=== PATIENT | female | born 1950 | race Caucasian/White ===

== ENCOUNTER 2022-12-22 00:53 | Emergency (ER) | payer OTHER, SELFPAY ==
[2022-12-22 01:03] VITALS: BP 154/79; PULSE 59; RESP 16; TEMP 36.8; O2SAT 99; BMI 25.5
--- NOTE | 2022-12-22 01:10 | ED_ITS ---
HPI - General Adult General Chief complaint: Allergic Reaction Stated complaint: HIVES Time Seen by Provider: 12/22/22 01:09 Source: patient Mode of arrival: walk-in Limitations: no limitations History of Present Illness HPI narrative: past history of recurrent hives. States they resolve with prednisone. 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 Now arrives with swelling about her left eye . Describes burning pain. Is now developing a cough. Not short of breath. No associated nausea or fever Onset (ago): day(s) Related Data Allergies Allergy/AdvReac Type Severity Reaction Status Date / Time tramadol AdvReac Intermediate Dizziness Verified 12/22/22 01:07 Review of Systems ROS Status of ROS 10 or more systems reviewed and unremarkable except as noted in history and below Exam Constitutional Vital Signs - 24 hr 12/22/22 01:03 12/22/22 01:14 12/22/22 02:45 Temperature 98.3 F Pulse Rate [Monitor Right] 59 L 65 Respiratory Rate 16 16 16 Blood Pressure [Right Arm] 154/79 H 118/69 Pulse Oximetry 99 97 Oxygen Delivery Method Room Air Room Air HENMT Common normals: normocephalic and head/scalp atraumatic Eye Common normals: PERRL, EOMs intact bilaterally and conjunctivae normal Periorbital: periorbital findings abnormal (swelling about left eye) Neck & C-Spine Common normals: full ROM and no lymphadenopathy Chest Common normals: inspection of chest normal and palpation of chest normal Respiratory Common normals: normal respiratory effort, no retractions, no use of accessory muscles and clear to auscultation bilaterally Cardio Common normals: no JVD, regular rate, regular rhythm, S1 normal heart sound and S2 normal heart sound GI Common normals: Normal to inspection, nondistended, normoactive bowel sounds present and soft to palpation Back & Pelvis Common normals: no CVA tenderness and thoracic and lumbar spine normal to inspection Extremity Common normals: normal to inspection and no joint enlargement Neuro Common normals: oriented x3 and CN's II-XII intact bilaterally Psych Appearance: grossly normal Course Vital Signs Vital signs: Vital Signs Temperature 98.3 F 12/22/22 01:03 Pulse Rate 59 L 12/22/22 01:03 Respiratory Rate 16 12/22/22 01:03 Blood Pressure 154/79 H 12/22/22 01:03 Pulse Oximetry 99 12/22/22 01:03 Oxygen Delivery Method Room Air 12/22/22 01:03 Temperature 98.3 F 12/22/22 01:03 Pulse Rate 65 12/22/22 02:45 Respiratory Rate 16 12/22/22 02:45 Blood Pressure 118/69 12/22/22 02:45 Pulse Oximetry 97 12/22/22 02:45 Oxygen Delivery Method Room Air 12/22/22 02:45 Medical Decision Making MDM Narrative Medical decision making narrative: patient presents with an allergic reaction with mild cough and swelling about her left eye. similar reactions in the past that have responded to prednisone. Treated with solumedrol in the department and her swelling has decreased and co ugh resolved. Discharged home with a dose of prednisone for the AM. she already has a prescription of prednisone called in by her doctor Lab Data Labs: Lab Results 12/22/22 Range/Units 01:05 WBC 9.5 (4.0-11.0) 10^3/uL RBC 4.34 (4.20-5.40) 10^6/uL Hgb 13.6 (12.0-16.0) g/dL Hct 40.6 (36.0-48.0) % MCV 93.5 (81.0-99.0) fL MCH 31.3 (26.7-34.0) pg MCHC 33.5 (29.9-35.2) g/dL RDW 12.8 (11.0-15.0) % Plt Count 248 (150-450) 10^3/uL MPV 9.4 L (9.5-13.5) fL Neut % (Auto) 65.3 (43.0-75.0) % Lymph % (Auto) 25.3 (20.5-60.0) % Chase % (Auto) 6.0 (1.7-12.0) % Eos % (Auto) 3.0 (0.9-7.0) % Baso % (Auto) 0.2 (0.2-2.0) % Neut # (Auto) 6.2 (1.4-6.5) 10^3/uL Lymph # (Auto) 2.4 (1.2-3.8) 10^3/uL Chase # (Auto) 0.6 (0.3-0.8) 10^3/uL Eos # (Auto) 0.3 (0.0-0.7) 10^3/uL Baso # (Auto) 0.0 (0.0-0.1) 10^3/uL Sodium 138 (136-145) mmol/L Potassium 3.0 L (3.5-5.1) mmol/L Chloride 105 (98-107) mmol/L Carbon Dioxide 24.8 (21.0-32.0) mmol/L Anion Gap 11.2 BUN 23.0 H (7.0-18.0) mg/dL Creatinine 0.97 (0.55-1.02) mg/dL Est GFR ( Amer) >60 (>=60) Est GFR (Non-Af Amer) 57 L (>=60) BUN/Creatinine Ratio 23.7 Glucose 137 H (74-106) mg/dL Calcium 9.2 (8.5-10.1) mg/dL C-Reactive Protein <1.0 (<=1.0) mg/dL Discharge Plan Discharge Chief Complaint: Allergic Reaction Clinical Impression: Allergic reaction Instructions: Allergies (ED) Stand Alone Forms: Portal Instructions Referrals: DWAYNE HAN [Primary Care Provider] - 1 week Follow Up Appointments: follow up with your doctor next week
[2022-12-22 01:14] VITALS: RESP 16
[2022-12-22 01:18] LABS: Basophils Percent Auto 0.2 % (0.2-2.0); Eosinophils Absolute Auto 0.3 10^3/uL (0.0-0.7); Hematocrit 40.6 % (36.0-48.0); Hemoglobin 13.6 g/dL (12.0-16.0); Immature Granulocytes Abs Auto 0.02 10^3/uL (0.00-0.03); Immature Granulocytes Pct Auto 0.2 % (0.0-0.5); Lymphocytes Absolute Auto 2.4 10^3/uL (1.2-3.8); Lymphocytes Percent Auto 25.3 % (20.5-60.0); Mean Corpuscular HGB Conc 33.5 g/dL (29.9-35.2); Mean Corpuscular Hemoglobin 31.3 pg (26.7-34.0); Mean Corpuscular Volume 93.5 fL (81.0-99.0); Mean Platelet Volume 9.4 fL (9.5-13.5); Monocytes Absolute Auto 0.6 10^3/uL (0.3-0.8); Neutrophils Absolute Auto 6.2 10^3/uL (1.4-6.5); Neutrophils Percent Auto 65.3 % (43.0-75.0); Platelet Count 248 10^3/uL (150-450); Red Blood Count 4.34 10^6/uL (4.20-5.40); Red Cell Distribution Width 12.8 % (11.0-15.0); White Blood Count 9.5 10^3/uL (4.0-11.0)
[2022-12-22 01:27] LABS: Anion Gap 11.2; BUN Creatinine Ratio 23.7; Calcium 9.2 mg/dL (8.5-10.1); Carbon Dioxide 24.8 mmol/L (21.0-32.0); Chloride 105 mmol/L (98-107); Estimated GFR (African America >60 (>=60); Estimated GFR (Non-African Ame 57 (>=60); Glucose 137 mg/dL (74-106); Sodium 138 mmol/L (136-145)
[2022-12-22] MEDS: METHYLPREDNISOLONE SOD SUCC PF 125 MG/2 ML VIAL IM (01:27)
[2022-12-22 01:39] LABS: C Reactive Protein <1.0 mg/dL (<=1.0)
[2022-12-22 02:45] VITALS: BP 118/69; PULSE 65; RESP 16; O2SAT 97
[2022-12-22 02:51] VITALS: BP 146/71; PULSE 62; RESP 16; O2SAT 98
== END 2022-12-22 03:09 | disposition home or self-care (01) ==
PROVIDERS: Emergency Provider Internal Medicine; PCP Internal Medicine
DX: T78.40XA Allergy, unspecified, initial encounter (principal)
CPT/HCPCS: 36415; 80048; 85025; 86140; 96372; 99284; J2930

== ENCOUNTER 2023-07-10 12:36 | Outpatient (OUT) | payer OTHER, SELFPAY ==
--- NOTE | 2023-07-10 | CONS_ITS ---
CONSULTATION DATE: 07/10/2023 TO: Awais Chawla M.D. CHIEF COMPLAINT: Includes severe right flank pain. HISTORY OF PRESENT ILLNESS: Review of systems, past medical/surgical history were obtained and documented on the health questionnaire and is available upon request. She is a 73-year-old female, reports having had pain in the above mentioned area starting one week ago that occurred spontaneously and increased gradually to its present state. She reports the pain is primarily again in her right flank area, right what she describes as pelvic area, exacerbated primarily with activities such as standing, walking and performing transitioning maneuvers. She feels most comfortable in the semi-recumbent position. She has denied any change in bowel and bladder habits or new sensorimotor change in the lower extremities. CURRENT MEDICATION: Includes prednisone which she takes for chronic hives, 20 mg daily. EXAM: Notable for patient having kyphoscoliosis. She has a non-focal sensorimotor exam of the lower extremities. DTRs symmetrical. She had no signs consistent with radiculopathy or myelopathy involving the lower extremities. Patient did have a moderate amount of pain with lumbar facet joint loading maneuvers occurring on the right side. She had a moderate amount of pain when performing right sided FABERs sign, pelvic rock, test and Gaenslen?s maneuver. She did have point tenderness along the iliac crest, as well as along the inferior portion of the actual oblique muscle, and she had quite a bit of tenderness and spasm of the right quadratus lumborum muscle. 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 RECOMMENDATIONS: I recommend she consider physical therapy with modalities. I have placed her on baclofen 10 mg pills, half a pill to one pill b.i.d. as tolerated, and topical nonsteroidal agents. Will see the patient back in the office in 6-8 weeks? time or sooner if needed. As part of providing excellent, safe, comprehensive care, the following was completed at our patient's visit: 1. A medication reconciliation and review to ensure accurate knowledge of current/active medications, including asking our patients to inform us about any gahr-oty-[id number] medications or herbal remedies/nutritional supplements/alternative remedies. 2. A review to specifically ensure our patients have had annual screening for: elevated body mass index (BMI, see intake chart for exact total), tobacco use, screening for depression, and screening for unhealthy alcohol use. When screening is concerning, patients are provided with education and the specific recommendation to discuss the concerning health issue and treatment options with their primary care provider. SALOME
== END 2023-07-10 12:37 | disposition home or self-care (01) ==
PROVIDERS: PCP Internal Medicine; Visit Provider Anesthesiology Pain Medicine
DX: M54.50 Low back pain, unspecified (principal); M41.9 Scoliosis, unspecified; M47.816 Spondylosis without myelopathy or radiculopathy, lumbar region
CPT/HCPCS: G0463

== ENCOUNTER 2023-08-26 12:47 | Outpatient (OUT) | payer OTHER, SELFPAY ==
--- NOTE | 2023-08-26 | CONS_ITS ---
PROCEDURE DATE: 08/26/2023 TO: Dr. Chawla PROCEDURE: Ilioinguinal nerve injection in the office. PREOPERATIVE DIAGNOSIS: Right ilioinguinal nerve neuritis, right tensor fascia amadou spasm and dysfunction. POSTOPERATIVE DIAGNOSIS: Right ilioinguinal nerve neuritis, right tensor fascia amadou spasm and dysfunction. SOLUTION USED FOR INJECTION: 2 mL of 2% lidocaine, 2 mL of 0.25% Marcaine and 10 mg of Kenalog, total of 5 mL, and 1 mL used for the injection at the site. IMMEDIATE COMPLICATIONS: None. PROCEDURE: After informed consent was obtained from the patient, placed in the supine position. The skin overlying the area was prepped with alcohol. A 25 gauge, 1 ?? needle was inserted over the area of the right ilioinguinal nerve. Needle tip was advanced until there was mild paresthesia, at which point we re- directed the needle tip and the paresthesia completed resolved. We injected 1 mL of solution. Post procedure, needle was removed. Patient reports a dramatic reduction in pain symptoms. I have also asked her to trial Zonegran 50 mg pills, 1-2 at h.s. as tolerated. MTDD
--- OUTSIDE RECORDS SUMMARY | 2023-08-26 12:54 | XMS_ITS | CCD ---
Author Name Unknown Address [address] [place] [id number] Organization [facility] Care Team Providers Care Ticket Sales Supervisor Name Role Phone EMELY, DR RICE Consulting Unavailable EMELY, DR RICE Attending Unavailable EMELY, DR RICE Admitting Unavailable EMELY, DR RICE Primary Care Unavailable ZACKARY, DR LISA Stephen Consulting Unavailable NORMA, DR EUNICE Jamison Consulting Unavailable EMELY, DR RICE Consulting Unavailable EMELY, DR RICE Attending Unavailable EMELY, DR RICE Admitting Unavailable EMELY, DR RICE Primary Care Unavailable ZACKARY, DR LISA Stephen Consulting Unavailable AVRIL GUERRA Attending Unavailable AVRIL GUERRA Referring Unavailable Problems Problem Classification Problem Date Documented Da te Episodic/Chronic Menopausal disorders (1 source) Other primary ovarian failure; Translations: [OTHER PRIMARY OVARIAN FAILURE] Onset: 08-22-2022 Chronic Nonmalignant breast conditions (1 source) Unspecified lump in the right breast, lower inner quadrant; Translations: [UNS LUMP IN RT BRST LW INR QUADRANT] Onset: 08-22-2022 Episodic Osteoporosis (1 source) Age-related osteoporosis without current pathological fracture; Translations: [AGE-REL OSTEOPOR W/O CURR PATH FX] Onset: 08-22-2022 Chronic Other screening for suspected conditions (not mental disorders or infectious disease) (8 sources) Other abnormal and inconclusive findings on diagnostic imaging of breast; Translations: [Encounter for screening mammogram for malignant neoplasm of breast] Onset: 08-20-2022 Episodic Results Test Name Value Interpretation Reference Range Facil ity MG MAMM RT DIAG FUon 023 MG MAMM RT DIAG FU Patient: MAGDALENA CHATTERJEE V. Exam Date: 08/30/2022 : 1950 Gender:F Ordering : DR DWAYNE HAN M.D. Admission #: [id number] Family : Order #: [id number] CLICK HERE TO VIEW EXAM RADIOLOGY REPORT PROCEDURE: MAMMOGRAM RIGHT DIAGNOSTIC DIGITAL FOLLOW UP, 08/30/2022, 13:33 ULTRASOUND BREAST RIGHT LIMITED, 08/30/2022, 14:34 COMPARISON: MG MAMM SCREEN 3D KENIA CAD, 08/20/2022. INDICATIONS: Abnormal findings on diagnostic imaging of breast Calculator Name NCI Breast Cancer Risk Assessment Tool 5 Year Breast Cancer Risk 1.10% Lifetime Breast Cancer Risk 3.30% Personal Breast Cancer No Personal Ovarian Cancer No Treatments None Family Cancers None LOCATION: [facility] BREAST COMPOSITION: Scattered areas fibroglandular density. FINDINGS: DIAGNOSTIC CATEGORY 3--PROBABLY BENIGN FINDING. THE FOLLOWING FINDING(S) HAS A HIGH PROBABILITY OF A BENIGN ETIOLOGY: Circumscribed reniform shape 5.6 x 3.5 mm nodule identified in lower inner quadrant, mid breast. Ultrasound demonstrates 4 o'clock position and area hypo echogenicity peripheral hyper echogenicity possibly calcification. This measures 2.1 x 2.0 x 2.2 mm. The ultrasound abnormality is not congruent in size to mammographic finding. Given the relative any benign appearance modalities, six-month follow-up is recommended than biopsy of 2 separate lesions RECOMMENDATIONS: SHORT TERM FOLLOW-UP DIAGNOSTIC MAMMOGRAM RIGHT BREAST IN 6 MONTHS. SHORT TERM FOLLOW-UP ULTRASOUND RIGHT BREAST IN 6 MONTHS. ADDITIONAL MAMMOGRAPHIC VIEWS REQUIRED: RIGHT BREAST - diagnostic mammogram PLEASE NOTE: A NORMAL MAMMOGRAM DOES NOT EXCLUDE THE POSSIBILITY OF BREAST CANCER. A CLINICALLY SUSPICIOUS PALPABLE LUMP SHOULD BE BIOPSIED. Dictated by: Lisa Redding MD on 08/30/2022 at 14:45 Approved by: Lisa Redding MD on 08/30/2022 at 15:13 Normal [facility] US BREAST RIGHT LIMITEDon US BREAST RIGHT LIMITED Patient: MAGDALENA CHATTERJEE V. Exam Date: 08/30/2022 : 1950 Gender:F Ordering : DR DWAYNE HAN M.D. Admission #: [id number] Family : Order #: [id number] CLICK HERE TO VIEW EXAM RADIOLOGY REPORT PROCEDURE: MAMMOGRAM RIGHT DIAGNOSTIC DIGITAL FOLLOW UP, 08/30/2022, 13:33 ULTRASOUND BREAST RIGHT LIMITED, 08/30/2022, 14:34 COMPARISON: MG MAMM SCREEN 3D KENIA CAD, 08/20/2022. INDICATIONS: Abnormal findings on diagnostic imaging of breast Calculator Name NCI Breast Cancer Risk Assessment Tool 5 Year Breast Cancer Risk 1.10% Lifetime Breast Cancer Risk 3.30% Personal Breast Cancer No Personal Ovarian Cancer No Treatments None Family Cancers None LOCATION: [facility] BREAST COMPOSITION: Scattered areas fibroglandular density. FINDINGS: DIAGNOSTIC CATEGORY 3--PROBABLY BENIGN FINDING. THE FOLLOWING FINDING(S) HAS A HIGH PROBABILITY OF A BENIGN ETIOLOGY: Circumscribed reniform shape 5.6 x 3.5 mm nodule identified in lower inner quadrant, mid breast. Ultrasound demonstrates 4 o'clock position and area hypo echogenicity peripheral hyper echogenicity possibly calcification. This measures 2.1 x 2.0 x 2.2 mm. The ultrasound abnormality is not congruent in size to mammographic finding. Given the relative any benign appearance modalities, six-month follow-up is recommended than biopsy of 2 separate lesions RECOMMENDATIONS: SHORT TERM FOLLOW-UP DIAGNOSTIC MAMMOGRAM RIGHT BREAST IN 6 MONTHS. SHORT TERM FOLLOW-UP ULTRASOUND RIGHT BREAST IN 6 MONTHS. ADDITIONAL MAMMOGRAPHIC VIEWS REQUIRED: RIGHT BREAST - diagnostic mammogram PLEASE NOTE: A NORMAL MAMMOGRAM DOES NOT EXCLUDE THE POSSIBILITY OF BREAST CANCER. A CLINICALLY SUSPICIOUS PALPABLE LUMP SHOULD BE BIOPSIED. Dictated by: Lisa Redding MD on 08/30/2022 at 14:45 Approved by: Lisa Redding MD on 08/30/2022 at 15:13 Normal [facility] MAMM SCREEN 3D KENIA CADon 08-20-2022 MG MAMM SCREEN 3D KENIA CAD Patient: MAGDALENA CHATTERJEE V. Exam Date: 08/20/2022 : 1950 Gender:F Ordering : DR DWAYNE HAN M.D. Admission #: [id number] Family : Order #: [id number] CLICK HERE TO VIEW EXAM RADIOLOGY REPORT PROCEDURE: MAMMOGRAM SCREENING 3D BILATERAL CAD COMPARISON: MG MAMM SCREEN KENIA W CAD, 11/18/2017. MG MAMM SCREEN KENIA W CAD, 04/17/2020. MG MAMM LT DIAG FU, 05/02/2020. INDICATIONS: Screening mammography Calculator Name NCI Breast Cancer Risk Assessment Tool 5 Year Breast Cancer Risk 1.10% Lifetime Breast Cancer Risk 3.30% Personal Breast Cancer No Personal Ovarian Cancer No Treatments None Family Cancers None LOCATION: [facility] BREAST COMPOSITION: Scattered areas fibroglandular density. FINDINGS: DIAGNOSTIC CATEGORY 0--INCOMPLETE: NEED ADDITIONAL IMAGING EVALUATION. Scattered benign-appearing nodules are present. Scattered benign-appearing calcifications are present. Scattered benign-appearing lymph nodes are present. RIGHT BREAST: New 5.3 mm partially circumscribed nodule lower inner quadrant, anterior to mid breast. Spot compression and ultrasound is recommended. LEFT BREAST: No significant suspicious finding. RECOMMENDATIONS: ADDITIONAL MAMMOGRAPHIC VIEWS REQUIRED: RIGHT BREAST - spot compression ULTRASOUND: RIGHT BREAST PLEASE NOTE: A NORMAL MAMMOGRAM DOES NOT EXCLUDE THE POSSIBILITY OF BREAST CANCER. A CLINICALLY SUSPICIOUS PALPABLE LUMP SHOULD BE BIOPSIED. Dictated by: Lisa Redding MD on 08/21/2022 at 08:40 Approved by: Lisa Redding MD on 08/21/2022 at 08:49 Normal [facility] XR DEXA BONE DENSITYon 08-20 XR DEXA BONE DENSITY EXAMINATION: XR DEXA BONE DENSITY, 08/20/2022 2:45 PM EST HISTORY: Primary ovarian failure COMPARISON: DEXA bone densitometry 04/17/2020 TECHNIQUE: Dual-energy X-ray absorptiometry (DEXA) bone density study performed for the axial skeleton. FINDINGS: SPINE ANALYSIS: Average bone mineral density is 1.234 g/cm2. T-score (standard deviation relative to young adult mean): 0.5 . -1.9% change since prior study. HIP ANALYSIS: Lowest bone mineral density is within the left femoral neck, 0.670 g/cm2. T-score (standard deviation relative to young adult mean): -2.6 . +3.4% change since prior study. IMPRESSION: World David Organization Classification: Osteoporosis - High Fracture Risk Electronically authenticated by: EUNICE GREEN Date: 2022-08-20 15:28 Normal [facility] Encounters Encounter Date Encounter Type Care Provider Facility Start: 08-04-2023 End: 08-05-2023 ambulatory AVRIL GUERRA Not Available Start: 06-10-2023 End: 06-11-2023 ambulatory AVRIL GUERRA Not Available Start: 08-30-2022 End: 08-31-[address] DWAYNE HAN Facility:[facility] Start: 08-20-2022 End: 08-21-[address] DWAYNE HAN Facility:[facility] Payers Date Payer Category Payer Unknown [id number] 1950 Unknown [id number] 1950 Unknown [id number] 1950 Unknown [id number] 1950 Unknown [id number] 1950 Unknown [id number] Summary Purpose Family History No Family History Records FoundNo Family History Records Found Advance Directives No Advanced Directives Records FoundNo Advanced Directives Records Found Additional Source Comments INFORMATION SOURCE (unrecogn ized section and content) DATE CREATED AUTHOR 09/07/2022 [facility] DATE CREATED AUTHOR CANDI HONG 08/09/2023 [facility] FOR RECORDS PERTAINING TO PATIENTS WHO ARE OR HAVE BEEN ENROLLED IN A CHEMICAL DEPENDENCY/SUBSTANCEABUSE PROGRAM, SOME INFORMATION MAY BE OMITTED. This clinical summary was aggregated from multiple sources. Caution should be exercised in using it in the provision of clinical care. This summary normalizes information from multiple sources, and as a consequence, information in this document may materially change the coding, format and clinical context of patient data. In addition, data may be omitted in some cases. CLINICAL DECISIONS SHOULD BE BASED ON THE PRIMARY CLINICAL RECORDS. [facility]. provides no warranty or guarantee of the accuracy or completeness of information in this document.
== END 2023-08-26 12:48 | disposition home or self-care (01) ==
LOC: PM 12:47
PROVIDERS: PCP Internal Medicine; Visit Provider Anesthesiology Pain Medicine
DX: G57.91 Unspecified mononeuropathy of right lower limb (principal)
CPT/HCPCS: 64425; J0665; J3301

== ENCOUNTER 2023-10-14 08:41 | Outpatient (OUT) | payer OTHER, SELFPAY ==
--- NOTE | 2023-10-14 08:43 | MM_ITS ---
Patient Name: MAGDALENA CHATTERJEE MR#: [id number] : 1950 Exam Date: 10/14/2023 Ordering Doctor: DR TAVAI PEDERSON RADIOLOGY REPORT PROCEDURE: MM TOMOSYNTHESIS SCREENING BI COMPARISON: MG MAMM SCREEN 3D KENIA CAD, 08/20/2022. MG MAMM RT DIAG FU, 08/30/2022. INDICATIONS: Screening Calculator Name NCI Breast Cancer Risk Assessment Tool 5 Year Breast Cancer Risk 1.10% Lifetime Breast Cancer Risk 3.20% Personal Breast Cancer No Personal Ovarian Cancer No Treatments None Family Cancers None LOCATION: [facility] BREAST COMPOSITION: Scattered areas fibroglandular density. FINDINGS: DIAGNOSTIC CATEGORY 2--BENIGN FINDING. NO CHANGE FROM COMPARISON. Scattered benign-appearing nodules are present. Scattered benign-appearing calcifications are present. Scattered benign-appearing lymph nodes are present. RIGHT BREAST: No significant suspicious finding. LEFT BREAST: No significant suspicious finding. RECOMMENDATIONS: ROUTINE MAMMOGRAM AND CLINICAL EVALUATION IN 12 MONTHS. PLEASE NOTE: A NORMAL MAMMOGRAM DOES NOT EXCLUDE THE POSSIBILITY OF BREAST CANCER. A CLINICALLY SUSPICIOUS PALPABLE LUMP SHOULD BE BIOPSIED. Dictated by: Jose Redding MD on 10/14/2023 at 12:10 Approved by: Jose Redding MD on 10/14/2023 at 12:11
--- OUTSIDE RECORDS SUMMARY | 2023-10-14 08:44 | XMS_ITS | CCD ---
Author Organization [facility] Care Team Providers Care Accounts Receivable Manager Name Role Phone DR AWAIS CHAWLA Consulting Unavailable EMELY, DR RICE Attending Unavailable EMELY, DR RICE Admitting Unavailable EMELY, DR RICE Primary Care Unavailable ZACKARY, DR LISA Stephen Consulting Unavailable NORMA, DR EUNICE Jamison Consulting Unavailable EMELY, DR RICE Consulting Unavailable EMELY, DR RICE Attending Unavailable EMELY, DR RICE Admitting Unavailable EMELY, DR RICE Primary Care Unavailable ZACKARY, DR LISA Stephen Consulting Awais Churchill MD Unavailable Awais Chawla MD Primary Care Provider [phone] Attending Unavailable LAKSHMIPATHY, NARENDRANATH Referring Unava ilable KELI HADLEY Attending Unavailable KATHIMIRADHA, NARENDMAZIN Referring Unava ilable TAVIA PLATT Attending Unavailable AVRIL FOX Attending Unavailable AVRIL FOX Referring Unavailable Allergies Allergy Classification Reported Allergen(s) Allergy Type Date of Onset Reaction(s) Facility (6 sources) traMADol Drug Allergy 0 GI intolerance, Dizziness [facility] Medications Current Medications Medication Drug Class(es) Dates Sig (Normalized) Sig (Original) aspirin 500 mg oral tablet (6 sources) Platelet Aggregation Inhibitor, Nonsteroidal Anti-inflammatory Drug take 1 tablet by mouth every six hours as needed for pain aspirin 500 MG buffered tablet Take 500 mg by mouth every 6 (six) hours if needed for mild pain. 0 Active cetirizine hydrochloride 10 mg oral tablet (6 sources) Histamine-1 Receptor Antagonist Start: 01-29-2023 End: 01-29-2024 take 2 tablets by mouth in the morning cetirizine (ZyrTEC) 10 MG tablet Indications: Chronic Urticaria , L50 Chronic Urticaria Take 2 tablets (20 mg) by mouth in the morning and 2 tablets (20 mg) before bedtime. 360 tablet 3 01/29/2023 01/29/2024 Active [id number] 0.3 ml EPINEPHrine 1 mg/ml auto-injector (6 sources) alpha-Adrenergic Agonist, beta-Adrenergic Agonist, Catecholamine Start: 05-14-2023 End: 05-13-2024 EPINEPHrine (Epipen) 0.3 MG/0.3ML injection syringe Indications: Chronic idiopathic urticaria Inject 0.3 mL (0.3 mg) as directed if needed for anaphylaxis. Call 911 after use. 2 each 1 05/14/2023 05/13/2024 Active famotidine 20 mg oral tablet (6 sources) Histamine-2 Receptor Antagonist Start: 01-29-2023 End: 01-29-2024 take 1 tablet by mouth in the morning famotidine (Pepcid) 20 MG tablet Indications: Idiopathic urticaria Take 1 tablet (20 mg) by mouth in the morning and 1 tablet (20 mg) before bedtime. 180 tablet 3 01/29/2023 01/29/2024 Active hydrOXYzine pamoate 25 mg oral capsule (6 sources) Antihistamine Start: 01-29-2023 End: 01-29-2024 take 1 capsule by mouth at bedtime hydrOXYzine pamoate (Vistaril) 25 MG capsule Indications: Idiopathic urticaria Take 1 capsule (25 mg) by mouth at bedtime. 90 capsule 3 01/29/2023 01/29/2024 Active montelukast 10 mg oral tablet (6 sources) Leukotriene Receptor Antagonist Start: 01-29-2023 End: 01-29-2024 take 1 tablet by mouth at bedtime montelukast (Singulair) 10 MG tablet Indications: Idiopathic urticaria Take 1 tablet (10 mg) by mouth at bedtime. 90 tablet 3 01/29/2023 01/29/2024 Active Problems Active Problems Problem Classification Problem Date Documented Da te Episodic/Chronic Disorders of lipid metabolism (6 sources) Hypertriglyceridemia ; Translations: [Pure hyperglyceridemia] Onset: 12-23-2022 12-23-2022 Chronic Diverticulosis and diverticulitis (6 sources) Diverticular disease; Translations: [Diverticulosis of intestine, part unspecified, without perforation or abscess without bleeding] Onset: 12-23-2022 12-23-2022 Chronic Menopausal disorders (7 sources) Other primary ovarian failure; Translations: [Decreased estrogen level] Onset: 08-22-2022 12-23-2022 Chronic Nonmalignant breast conditions (1 source) Unspecified lump in the right breast, lower inner quadrant; Translations: [UNS LUMP IN RT BRST LW INR QUADRANT] Onset: 08-22-2022 Episodic Osteoarthritis (6 sources) Osteoarthritis of left knee joint; Translations: [Unilateral primary osteoarthritis, left knee] Onset: 12-23-2022 12-23-2022 Chronic Osteoporosis (7 sources) Age-related osteoporosis without current pathological fracture; Translations: [Senile osteoporosis] Onset: 08-22-2022 12-23-2022 Chronic Other acquired deformities (6 sources) Scoliosis deformity of spine; Translations: [Scoliosis, unspecified] Onset: 12-23-2022 12-23-2022 Chronic Other bone disease and musculoskeletal deformities (2 sources) Idiopathic scoliosis of lumbar spine; Translations: [Other idiopathic scoliosis, lumbar region] 09-02-2023 Chronic Other connective tissue disease (6 sources) Artificial knee joint present; Translations: [Presence of unspecified artificial knee joint] Onset: 12-23-2022 12-23-2022 Chronic Other connective tissue disease (6 sources) History of total knee arthroplasty; Translations: [Presence of left artificial knee joint] Onset: 12-23-2022 12-23-2022 Chronic Other nervous system disorders (6 sources) Difficulty walking; Translations: [Difficulty in walking, not elsewhere classified] Onset: 12-23-2022 12-23-2022 Chronic Other nutritional; endocrine; and metabolic disorders (6 sources) Hypercalcemia; Translations: [Hypercalcemia] Onset: 12-23-2022 12-23-2022 Chronic Past or Other Problems Problem Classification Problem Date Documented Da te Episodic/Chronic Other acquired deformities (6 sources) Leg length inequality; Translations: [Unequal limb length (acquired), unspecified site] Onset: 12-23-2022 12-23-2022 Episodic Other screening for suspected conditions (not mental disorders or infectious disease) (14 sources) Other abnormal and inconclusive findings on diagnostic imaging of breast; Translations: [Encounter for screening mammogram for malignant neoplasm of breast] Onset: 08-20-2022 Episodic Results Test Name Value Interpretation Reference Range Facil ity MG MAMM RT DIAG FUon 023 MG MAMM RT DIAG FU Patient: MAGDALENA CHATTERJEE V. Exam Date: 08/30/2022 : 1950 Gender:F Ordering : DR AWAIS CHAWLA M.D. Admission #: [id number] Family : Order #: [id number] CLICK HERE TO VIEW EXAM RADIOLOGY REPORT [...] No Treatments None Family Cancers None LOCATION: [facility] BREAST COMPOSITION: Scattered areas fibroglandular density. FINDINGS: [...] MD on 08/30/2022 at 15:13 Normal [facility] US BREAST RIGHT LIMITEDon US BREAST RIGHT LIMITED Patient: MAGDALENA CHATTERJEE V. Exam Date: 08/30/2022 : 1950 Gender:F Ordering : DR AWAIS CHAWLA M.D. Admission #: [id number] Family : Order #: [id number] CLICK HERE TO VIEW EXAM RADIOLOGY REPORT [...] Treatments None Family Cancers None LOCATION: [facility] BREAST COMPOSITION: Scattered areas fibroglandular density. [...] MD on 08/30/2022 at 15:13 Normal [facility] MAMM SCREEN 3D KENIA CADon 08-20-2022 MG MAMM SCREEN 3D KENIA CAD Patient: MAGDALENA CHATTERJEE V. Exam Date: 08/20/2022 : 1950 Gender:F Ordering : DR AWAIS CHAWLA M.D. Admission #: [id number] Family : Order #: [id number] CLICK HERE TO VIEW EXAM RADIOLOGY REPORT [...] Treatments None Family Cancers None LOCATION: [facility] BREAST COMPOSITION: Scattered areas fibroglandular density. [...] Redding MD on 08/21/2022 at 08:49 Normal [facility] XR DEXA BONE DENSITYon 08-20 XR DEXA [...] by: EUNICE GREEN Date: 2022-08-20 15:28 Normal [facility] Encounters Encounter Date Encounter Type Care Provider Facility Start: 10-01-2023 End: 10-01-2023 ambulatory TAVIA PLATT Not Available Start: 09-29-2023 End: 09-30-[address] Not Available Start: 09-03-2023 Bamboo flowsheet Keli Hadley PT [facility] Start: 09-03-2023 Bamboo flowsheet Keli Hadley PT A [facility] Start: 09-03-2023 Telephone encounter Tuyet mccloud PT Work Phone: [facility] Comment on above: re: PT (She noted th at w/ the 2 PT's so far she is feeling no progress or improvement; I advised a cont w/ be beneficial. But she chooses to discontinue; I recommended and she said she is going to contact doctor. I noted not to hesitate if PT is needed.) Start: 09-02-2023 Bamboo flowsheet Keli Hadley PT A [facility] Start: 09-02-2023 Bamboo flowsheet Keli Hadley PT A [facility] Start: 09-02-2023 End: 09-02-2023 ambulatory Keli Hadley ROD STRAIGHTENER [facility] Comment on above: Other idiopathic sco liosis, lumbar region (Primary Dx) Start: 09-01-2023 Bamboo flowsheet Tuyet Ewing s PT Work Phone: [facility] Start: 09-01-2023 Bamboo flowsheet Tuyet Redding Gildardo s PT Work Phone: [facility] Start: 09-01-2023 End: 09-02-[address] Not Available Start: 09-01-2023 End: 09-01-[address] Not Available Start: 08-29-2023 End: 09-01-[address] PT Work Phone: [facility] Comment on above: Other idiopathic sco liosis, lumbar region (Primary Dx) Start: 08-04-2023 End: 08-05-[address] Not Available Start: 06-10-2023 End: 06-11-2023 ambulatory AVRIL FOX Not Available Start: 08-30-2022 End: 08-31-[address] AWAIS CHAWLA Facility:[facility] Start: 08-20-2022 End: 08-21-[address] AWAIS CHAWLA Facility:[facility] Procedures Date Procedure Procedure Detail Performing Clinician Start: 08-30-2022 Mammography Tuyet Ana Rosa ns PT Work Phone: Plan of Treatment Date Care Activity Detail Author Start: 08-28-2025 Screening for malign ant neoplasm of colon [facility] Start: 06-15-2024 End: 06-15-2024 Patient encounter procedure 06/15/2024 1:45 PM EST Office Visit [facility] [address] [place] [address] Avril Fox, [address] [place] [address] [facility] Start: 09-29-2023 End: 09-29-2023 Clinical Support 09/29/2023 10:15 AM EDT Clinical Support [facility] [address] [place] [address] [facility] Start: 09-17-2023 End: 09-17-2023 Patient encounter procedure 09/17/2023 9:20 AM EST Office Visit [facility] [address] [place] [address] Larry Devine MD [address] [place] [address] [facility] Start: 09-05-2023 End: 09-05-2023 ambulatory 09/05/2023 10:00 AM EST Treatment [facility] [address] [facility] [address] [place] [phone] Keli Hadley PTA [facility] Start: 09-02-2023 End: 09-02-2023 ambulatory [facility] Comment on above: Arrived Start: 09-01-2023 End: 09-01-2023 Clinical Support 09/01/2023 11:00 AM EST Clinical Support [facility] [address] [place] [address] [facility] Start: 08-30-2023 Screening for malign ant neoplasm of breast Mammogram [facility] Start: 08-15-2023 Medicare Annual Wellness (AWV) Medicare Annual Wellness (AWV) [facility] Start: 03-21-2023 Influenza vaccination Influenza Vacc ine (#1) [facility] Start: 2017 Pneumococcal Vaccine : 65+ Years (1 - PCV) Pneumococcal Vaccine: 65+ Years (1 - PCV) [facility] Start: 1950 Screening for malign ant neoplasm of colon [facility] Payers Date Payer Category Payer Unknown [employer] [id number] 2023-Present [address] [place] [address] [id number] 2020 Unknown [id number] 1950 Unknown [id number] 1950 Unknown [id number] 1950 Unknown [id number] 9 1950 Unknown [id number] 9 1950 Unknown [id number] 9 1950 Unknown [id number] 9 1950 Unknown [id number] 9 1950 Unknown [id number] 9 1950 Unknown [id number] 9 1950 Unknown [id number] 9 Social History Date Type Detail Facility Start: 12-23-2022 Tobacco smoking stat [facility] Never smoked tobacco [facility] Start: 12-23-2022 Tobacco use and exposure Smokeless t obacco non-user [facility] Start: 05-14-2023 Alcohol intake Lifetime non-d sandoval (finding) [facility] Start: 05-14-2023 History of Social function [facility] Start: 05-14-2023 Tobacco use panel [facility] Start: 1950 Sex Assigned At Not on file N [facility] History of Present illness Narrative 08-29-[address], PT - 08/29/2023 8:00 AM EST Note Date & Type Note Facility 08-29-2023 History of Presen t illness Narrative Time In: 3:30 pm Time Out: 4:30 pm Supervised Time: 60 min Total Time: 60 min Evaluation Time: 20 min Visit Number: 1, $20 co-pay, medical necessity Chief Complaint: Hip pain Diagnosis: Other idiopathic scoliosis lumbar region Precautions: Subjective History: s/p left TKA on 06/07/2020. Pt states that leg length discrepancy was corrected with this surgery. Now scoliosis has returned with pelvic obliquity without LLD. Dr. Fox: apparent LLD. Rib impingement on right. Mechanism of injury: Pain in back and hips started end of 2022 summer season at working at [employer]. Location of Symptoms: R lateral pelvis, scoliosis, affects gait pattern Pain level: 0-8/10, better in am. What increases symptoms: standing, walking What decreases symptoms: lying down on left side, +sleep disturbance, pain better first thing in morning, progressively worsening as day/activity level progresses. Pain radiates: to back Timing of pain: intermittent Numbness/tingling: no Imaging: calcification Objective Posture / Appearance: scoliosis with right iliac crest high in stand more than sit Lumbar AROM: flexion: 50% limited, fingertips to knees extension: 25% limited L side bend: WFL R side bend: 75% limited with pain Muscle Strength: Hips: 4/5, core 4/5 Quads, hamstrings, ant tib, gastroc-soleus: 5/5 Palpation: point tender glut med right, right T10, 11 ribs Joint Play: decreased left SI, right L3-5. Asymmetries at pelvis Muscle length: decreased right quadratus Special Tests: Negative SLR test, FABERE, hip scour bilaterally. 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 Soft tissue mobes: quadratus. 20 min Therapeutic exercises: core and oblique, proximal LE strengthening initiated. X 20 min. Can add shoulder upper back strengthening. OA bilateral knees limits some exercises. Pt had pain with bridging. 20 min Modalities: heat, ice, e-stim as needed for pain and stiffness. PT Assessment: Therapy Diagnosis: scoliosis with hip, rib, back pain Functional Limitations: LEFS: 38/80 points: 52% impairment Halfway Goals: Decrease pain 50% in 3 weeks Pt able to stabilize spine with hip rotation, flexion, extension. Improve hip strength to 5/5 Indep with exercise program for home and gym to address core strength, stretching quadratus, hips. Rehab Potential: Good Plan: PT 1-2x/week x 3-6 weeks Treatment: manual therapy, there ex, modalties as needed. I hereby deem this POC medically necessary. Please sign below and fax back to the number below. Physician Signature: Date: documented in this encounter [facility] Evaluation note Note Date & Type Note Facility Evaluation note Diagnosis Other idiopathic scoliosis, lumbar region- Primary documented in this encounter [facility] Evaluation note Note Date & Type Note Facility Evaluation note Diagnosis Other idiopathic scoliosis, lumbar region- Primary documented in this encounter [facility] Summary Purpose Family History No Family History Records FoundNo Family History Records Found Advance Directives No Advanced Directives Records FoundNo Advanced Directives Records Found Additional Source Comments INFORMATION SOURCE (unrecogn ized section and content) DATE CREATED AUTHOR 09/07/2022 [facility] DATE CREATED AUTHOR AUTHOR'S ORGANIZ ATION 10/04/2023 [facility] EPIC Care Teams (unrecognized sec tion and content) Accounts Receivable Manager Relationship Specialty Start Date End Date Awais Chawla MD [address] [place] [address] PCP - [employer]oted 07/21/22 Awais Chawla MD [address] [place] [address] PCP - General Internal Medicine 12/23/22 Accounts Receivable Manager Relationship Specialty Start Date End Date Awais Chawla MD [address] [place] [address] PCP - [employer]oted 07/21/22 Awais Chawla MD [address] [place] [address] PCP - General Internal Medicine 12/23/22 Accounts Receivable Manager Relationship Specialty Start Date End Date Awais Chawla MD [address] [place] [address] PCP - [employer]oted 07/21/22 Awais Chawla MD [address] [place] [address] PCP - General Internal Medicine 12/23/22 Accounts Receivable Manager Relationship Specialty Start Date End Date Awais Chawla MD [address] [place] [address] PCP - [employer] 07/21/22 Awais Chawla MD [address] [place] [address] PCP - General Internal Medicine 12/23/22 Reason for Visit (unrecogniz ed section and content) Specialty Diagnoses / Procedures Referred By Contac t Referred To Contact Physical Therapy Diagnoses Other idiopathic scoliosis, lumbar region Right Obliques and Quad Lumbo Procedures [place] PHYSICAL THERAPY EVALUATION LOW COMPLEX 20 MINS Jodee Kumar MD [address] [facility] [place] [address], PT [address] [place] [address] Referral ID Status Reason Start Date Expiration Date V isits Requested Visits Authorized [id number] Authorized 08/25/2023 02/21/2024 99 99 Reason Onset Date Comments re: PT 09/03/2023 She noted that w / the 2 PT's so far she is feeling no progress or improvement; I advised a cont w/ be beneficial. But she chooses to discontinue; I recommended and she said she is going to contact doctor. I noted not to hesitate if PT is needed. FOR RECORDS PERTAINING TO PATIENTS WHO ARE [...] BE BASED ON THE PRIMARY CLINICAL RECORDS. [employer] provides no warranty or guarantee of the accuracy or completeness of information in this document.
== END 2023-10-14 08:42 | disposition home or self-care (01) ==
LOC: MAMMO 08:41
PROVIDERS: PCP Internal Medicine; Visit Provider Physician Assistant
DX: Z12.31 Encounter for screening mammogram for malignant neoplasm of breast (principal)
CPT/HCPCS: 77063; 77067

== ENCOUNTER 2024-04-29 13:49 | Emergency (ER) | payer OTHER, SELFPAY ==
[2024-04-29 13:55] VITALS: BP 170/90; PULSE 89; TEMP 36.7; O2SAT 98; BMI 23.5
--- NOTE | 2024-04-29 14:05 | CT_ITS ---
[address] [address] Patient Name: MAGDALENA CHATTERJEE MRN: [id number] date: 1950 Sex: F Assigned Patient Location: ER Current Patient Location: Accession/Order Number: [id number] Exam Date: 04/29/2024 14:28 Report Date: 04/29/2024 14:56 At the request of: IVON BLACK Procedure: CT abdomen pelvis wo con EXAMINATION: CT abdomen pelvis wo con HISTORY: Right abd, flank pain COMPARISON: CT abdomen pelvis 06/25/2021 TECHNIQUE: Axial, Coronal, and Sagittal images were obtained without and/or with IV contrast as indicated by examination type. Dose reduction techniques were achieved by using automated exposure control and/or adjustment of mA and/or kV according to patient size and/or use of iterative reconstruction technique. FINDINGS: LUNG BASES: No visible pulmonary or pleural disease. LIVER: No enlargement, atrophy, suspicious density, or significant focal lesion. BILIARY: No dilatation or calcification. PANCREAS: No lesion, fluid collection, or abnormal duct dilatation. SPLEEN: No enlargement or focal lesion. ADRENALS: No mass or enlargement. KIDNEYS: Moderate right hydronephrosis and hydroureter secondary to an obstructing 3 mm stone within the distal ureter near the ureterovesical junction. No additional urinary tract calculi. BOWEL/MESENTERY: Large hiatal hernia. Numerous diverticula along the length of the colon without acute inflammatory changes. No visible mass, obstruction, or bowel wall thickening. AORTA/VASCULAR: No aneurysm or dissection. RETROPERITONEUM: No mass or adenopathy. LYMPH NODES: No adenopathy. URINARY BLADDER: No visible focal wall thickening, lesion, or calculus. PELVIC ORGANS: No visible mass. Pelvic organs appropriate for patient age. ABDOMINAL WALL: No mass or hernia. BONES: Marked levoscoliosis, multilevel degenerative disc disease, and facet arthropathy. OTHER: Negative. CT/CT abdomen pelvis wo con IMPRESSION: 1. Moderate right hydronephrosis and hydroureter secondary to an obstructing 3 mm stone within the distal ureter. 2. No additional urinary tract calculi. 3. Colonic diverticulosis; no convincing acute findings. Electronically authenticated by: EUNICE GREEN Date: 04/29/2024 14:56
--- NOTE | 2024-04-29 14:07 | ED.ABDPAIN1 ---
HPI - Abdominal Pain General Chief Complaint: Abdominal Pain Stated Complaint: URINARY PAIN Time Seen by Provider: 04/29/24 14:01 Source: patient Mode of arrival: walk-in Limitations: no limitations History of Present Illness HPI narrative: 74 year old male presents to the ED for right abd, flank pain. Onset was this morning. Reports N/V. She has hx kidney stones; last known passed stone was approx 15 years ago. Denies fever, chills, injury, dysuria, hematuria. Related Data Home Medications ?Medication ?Instructions ?Recorded ?Confirmed baclofen 10 mg tablet 10 mg PO BID 07/10/23 07/10/23 cetirizine 10 mg tablet 10 mg PO BID PRN allergy symptoms 07/10/23 07/10/23 famotidine 20 mg tablet 20 mg PO BID 07/10/23 07/10/23 hydroxyzine HCl 25 mg tablet 25 mg PO DAILY 07/10/23 07/10/23 montelukast 10 mg tablet 10 mg PO DAILY 07/10/23 07/10/23 prednisone 20 mg tablet 20 mg PO DAILY 07/10/23 07/10/23 Previous Rx's ?Medication ?Instructions ?Recorded cephalexin 500 mg capsule 500 mg PO TID 5 days #15 caps 04/29/24 hydrocodone 5 mg-acetaminophen 325 1 tab PO Q8H PRN pain 4 days #12 04/29/24 mg tablet tabs ondansetron 4 mg disintegrating 4 mg PO Q8H PRN nausea and 04/29/24 tablet vomiting 3 days #12 tabs tamsulosin 0.4 mg capsule (Flomax) 0.4 mg PO DAILY #7 caps 04/29/24 Allergies Allergy/AdvReac Type Severity Reaction Status Date / Time tramadol AdvReac Intermediate Dizziness Verified 04/29/24 13:54 Review of Systems ROS Constitutional Denies: fever or chills Cardiovascular Denies: chest pain Respiratory Denies: shortness of breath Gastrointestinal Reports: abdominal pain, nausea and vomiting; Denies: diarrhea Genitourinary Denies: painful urination, urinary frequency, urinary urgency or blood in urine Musculoskeletal Reports: back pain; Denies: neck pain Integumentary/Breast Denies: rash Neurological Denies: headache or weakness in extremities PFSH PFSH Social History Little interest or pleasure in doing things: not at all Feeling down, depressed, or hopeless: not at all Exam Constitutional Vital Signs, click to edit/add: Last Vital Signs Temp 98.1 F 04/29/24 13:55 Pulse 76 04/29/24 14:45 Resp 18 04/29/24 14:45 BP 136/96 H 04/29/24 14:45 Pulse Ox 97 04/29/24 14:45 O2 Del Method Room Air 04/29/24 13:55 Common normals: no apparent distress and oriented x3 General appearance: cooperative HENMT Mouth: lip normal and tongue normal Throat: posterior oropharynx normal Eye Common normals: conjunctivae normal and no scleral icterus Neck & C-Spine Common normals: supple Respiratory Common normals: normal respiratory effort Effort & inspection: able to speak in complete sentences Cardio Common normals: regular rate and regular rhythm GI Common normals: Normal to inspection, nondistended, normoactive bowel sounds present and soft to palpation Palpation: soft and tender Details: RLQ Bladder/kidney exam: no CVA tenderness Neuro Common normals: oriented x3 and moves all extremities Sensorium/orientation: awake and alert Speech: speech normal Course Vital Signs Vital signs: Vital Signs Temperature 98.1 F 04/29/24 13:55 Pulse Rate 89 04/29/24 13:55 Respiratory Rate 20 04/29/24 13:55 Blood Pressure 170/90 H 04/29/24 13:55 Pulse Oximetry 98 04/29/24 13:55 Oxygen Delivery Method Room Air 04/29/24 13:55 Temperature 98.1 F 04/29/24 13:55 Pulse Rate 76 04/29/24 14:45 Respiratory Rate 18 04/29/24 14:45 Blood Pressure 136/96 H 04/29/24 14:45 Pulse Oximetry 97 04/29/24 14:45 Oxygen Delivery Method Room Air 04/29/24 13:55 MDM - Abdominal Pain MDM Narrative Medical decision making narrative: CT scan showed moderate right hydronephrosis and hydroureter secondary to an obstructing 3 mm stone within the distal ureter. WBC count was 8.2. BUN and creatinine were comparable to previous; BUN was 20, creatinine 1.21. She was given medication with improvement in her sx. Urinalysis showed infection; culture was pending. She was given IV Rocephin. The patient preferred to be discharged home. OARRS review was attempted. Prescriptions were provided for Zofran, Flomax, [place], and Keflex. Follow up with pcp and urology for a recheck, further evaluation and treatment. Return precautions were discussed. Differential Diagnosis Differential diagnosis: Likely abdominal pain, calculus of kidney, diverticulitis, gastroenteritis and small bowel obstruction Medical Records Attestation: I reviewed the patient's medical records. Lab Data Attestation: I reviewed the patient's lab results. Labs: Lab Results 04/29/24 04/29/24 Range/Units 13:36 17:33 WBC 8.3 (4.0-11.0) 10^3/uL RBC 4.62 (4.20-5.40) 10^6/uL Hgb 14.7 (12.0-16.0) g/dL Hct 42.9 (36.0-48.0) % MCV 92.9 (81.0-99.0) fL MCH 31.8 (26.7-34.0) pg MCHC 34.3 (29.9-35.2) g/dL RDW 12.3 (11.0-15.0) % Plt Count 273 (150-450) 10^3/uL MPV 9.6 (9.5-13.5) fL Neut % (Auto) 63.9 (43.0-75.0) % Lymph % (Auto) 24.3 (20.5-60.0) % [place] % (Auto) 7.2 (1.7-12.0) % Eos % (Auto) 4.0 (0.9-7.0) % Baso % (Auto) 0.4 (0.2-2.0) % Neut # (Auto) 5.3 (1.4-6.5) 10^3/uL Lymph # (Auto) 2.0 (1.2-3.8) 10^3/uL Ramsey # (Auto) 0.6 (0.3-0.8) 10^3/uL Eos # (Auto) 0.3 (0.0-0.7) 10^3/uL Baso # (Auto) 0.0 (0.0-0.1) 10^3/uL Abs Immat Gran (auto) 0.02 (0.00-0.03) 10^3/uL Imm/Tot Granulo (auto) 0.2 (0.0-0.5) % Sodium 140 (136-145) mmol/L Potassium 4.0 (3.5-5.1) mmol/L Chloride 106 (98-107) mmol/L Carbon Dioxide 22.5 (21.0-32.0) mmol/L Anion Gap 15.5 BUN 20.0 H (7.0-18.0) mg/dL Creatinine 1.21 H (0.55-1.02) mg/dL Est GFR ( Amer) 53 L (>=60 mL/min/1.73m^2) Est GFR (Non-Af Amer) 44 L (>=60 mL/min/1.73m^2) BUN/Creatinine Ratio 16.5 Glucose 131 H (74-106) mg/dL Calcium 9.9 (8.5-10.1) mg/dL Total Bilirubin 0.3 (0.2-1.0) mg/dL AST 17 (15-37) U/L ALT 16 (14-59) U/L Alkaline Phosphatase 94 (46-116) U/L Total Protein 6.5 (6.4-8.2) g/dL Albumin 3.6 (3.4-5.0) g/dL Globulin 2.9 g/dL Albumin/Globulin Ratio 1.2 Urine Color Lt. yellow (YELLOW) Urine Clarity Sl cloudy (CLEAR) Urine pH 7.0 (5.0-9.0) Ur Specific [place] 1.020 (1.005-1.025) Urine Protein Negative (NEG/TRACE) mg/dL Urine Glucose (UA) Negative (NEGATIVE) mg/dL Urine Ketones Negative (NEGATIVE) mg/dL Urine Occult Blood Moderate A (NEGATIVE) Urine Nitrite Positive A (NEGATIVE) Urine Bilirubin Negative (NEGATIVE) Urine Urobilinogen 0.2 (0.2-1.0) EU/dL Ur Leukocyte Esterase Trace A (NEGATIVE) Urine RBC 2-5 A (0-2) #/HPF Urine WBC 10-20 A (NONE SEEN) #/HPF Ur Squamous Epith Cells Rare (NONE/RARE) #/LPF Urine Crystals None seen (None Seen) #/HPF Urine Bacteria Large A (NONE SEEN) #/HPF Urine Casts None seen (NONE SEEN) #/LPF Urine Mucus Moderate A (NONE SEEN) Ur Culture Indicated? Yes Imaging Data CT scan - abdomen: Radiologist's impression: ITS Impressions Abdomen/Pelvis CT 04/29/24 14:05 IMPRESSION: 1. Moderate right hydronephrosis and hydroureter secondary to an obstructing 3 mm stone within the distal ureter. 2. No additional urinary tract calculi. 3. Colonic diverticulosis; no convincing acute findings. Electronically authenticated by: EUNICE GREEN Date: 04/29/2024 14:56 Discharge Plan Discharge Chief Complaint: Abdominal Pain Clinical Impression: Kidney stone Patient Disposition: Home, Self-Care Time of Disposition Decision: 18:02 Condition: Good Mode of Transportation: Private Vehicle Prescriptions / Home Meds: New cephalexin 500 mg capsule 500 mg PO TID 5 Days Qty: 15 0RF ondansetron 4 mg tablet,disintegrating 4 mg PO Q8H PRN (Reason: nausea and vomiting) 3 Days Qty: 12 0RF tamsulosin [Flomax] 0.4 mg capsule 0.4 mg PO DAILY Qty: 7 0RF hydrocodone-acetaminophen 5-325 mg tablet 1 tab PO Q8H PRN (Reason: pain) 4 Days Qty: 12 0RF No Action montelukast 10 mg tablet 10 mg PO DAILY hydroxyzine HCl 25 mg tablet 25 mg PO DAILY famotidine 20 mg tablet 20 mg PO BID cetirizine 10 mg tablet 10 mg PO BID PRN (Reason: allergy symptoms) baclofen 10 mg tablet 10 mg PO BID prednisone 20 mg tablet 20 mg PO DAILY Rx Instructions: days 11-21 of therapy Print Language: Kenyan Instructions: Kidney Stones (ED), Urinary Tract Infection in Women ([place]) Additional Instructions: Return to the ER if your condition worsens. Return if you develop a fever, decrease urine output, or worsening pain. Referrals: Dr Munoz [Other] - 1 week DWAYNE HAN [Primary Care Provider] - 1 week
[2024-04-29] MEDS: MORPHINE SULFATE 2 MG/ML SYRINGE IV (14:21)
[2024-04-29] MEDS: ONDANSETRON PF 4 MG/2 ML VIAL IV (14:21)
[2024-04-29 14:23] LABS: Basophils Percent Auto 0.4 % (0.2-2.0); Eosinophils Absolute Auto 0.3 10^3/uL (0.0-0.7); Hematocrit 42.9 % (36.0-48.0); Hemoglobin 14.7 g/dL (12.0-16.0); Immature Granulocytes Abs Auto 0.02 10^3/uL (0.00-0.03); Immature Granulocytes Pct Auto 0.2 % (0.0-0.5); Lymphocytes Percent Auto 24.3 % (20.5-60.0); Mean Corpuscular HGB Conc 34.3 g/dL (29.9-35.2); Mean Corpuscular Hemoglobin 31.8 pg (26.7-34.0); Mean Corpuscular Volume 92.9 fL (81.0-99.0); Mean Platelet Volume 9.6 fL (9.5-13.5); Monocytes Absolute Auto 0.6 10^3/uL (0.3-0.8); Monocytes Percent Auto 7.2 % (1.7-12.0); Neutrophils Absolute Auto 5.3 10^3/uL (1.4-6.5); Neutrophils Percent Auto 63.9 % (43.0-75.0); Platelet Count 273 10^3/uL (150-450); Red Blood Count 4.62 10^6/uL (4.20-5.40); Red Cell Distribution Width 12.3 % (11.0-15.0); White Blood Count 8.3 10^3/uL (4.0-11.0)
[2024-04-29 14:43] LABS: Alanine Aminotransferase 16 U/L (14-59); Albumin Globulin Ratio 1.2; Albumin Level 3.6 g/dL (3.4-5.0); Alkaline Phosphatase 94 U/L (46-116); Anion Gap 15.5; Aspartate Amino Transferase 17 U/L (15-37); BUN Creatinine Ratio 16.5; Bilirubin Total 0.3 mg/dL (0.2-1.0); Calcium 9.9 mg/dL (8.5-10.1); Carbon Dioxide 22.5 mmol/L (21.0-32.0); Chloride 106 mmol/L (98-107); Estimated GFR (African America 53 (>=60 mL/min/1.73m^2); Estimated GFR (Non-African Ame 44 (>=60 mL/min/1.73m^2); Globulin 2.9 g/dL; Glucose 131 mg/dL (74-106); Sodium 140 mmol/L (136-145); Total Protein 6.5 g/dL (6.4-8.2)
[2024-04-29 14:45] VITALS: BP 136/96; PULSE 76; O2SAT 97
[2024-04-29] MEDS: 0.9 % SODIUM CHLORIDE 500 ML 1000 ML IV (15:56)
[2024-04-29] MEDS: TAMSULOSIN HCL 0.4 MG CAPSULE PO (15:57)
[2024-04-29] MEDS: HYDROMORPHONE HCL 0.5 MG/0.5 ML SYRINGE IV (15:59)
[2024-04-29 17:42] LABS: Bilirubin Urine NEGATIVE (NEGATIVE); Blood Urine MODERATE (NEGATIVE); Clarity Urine SL CLOUDY (CLEAR); Color Urine LT. YELLOW (YELLOW); Glucose Urine UA NEGATIVE (NEGATIVE); Ketones Urine NEGATIVE (NEGATIVE); Leukocyte Esterase Urine TRACE (NEGATIVE); Nitrite Urine POSITIVE (NEGATIVE); Protein Urine NEGATIVE (NEG/TRACE); Urobilinogen Urine 0.2 EU/dL (0.2-1.0)
[2024-04-29 17:55] LABS: Urine Microscopic Indicated YES
[2024-04-29 17:56] LABS: Bacteria Urine LARGE #/HPF (NONE SEEN); Mucus Urine MODERATE (NONE SEEN); Squamous Epithelial Cell Urine RARE #/LPF (NONE/RARE)
[2024-04-29 17:57] LABS: Cast Seen? NONE SEEN #/LPF (NONE SEEN); Crystals Seen? None Seen #/HPF (None Seen); Urine Culture Indicated YES
[2024-04-29] MEDS: CEFTRIAXONE 1,000 MG in 0.9 % SODIUM CHLORIDE 50 ML 100 MG IV (18:34)
[2024-04-29 19:14] VITALS: O2SAT 98
== END 2024-04-29 19:15 | disposition home or self-care (01) ==
PROVIDERS: Nurse Practitioner Family; Emergency Provider Emergency Medicine; PCP Internal Medicine
DX: N13.2 Hydronephrosis with renal and ureteral calculous obstruction (principal); Z87.442 Personal history of urinary calculi
CPT/HCPCS: 36415; 74176; 80053; 81001; 85025; 87086; 96365; 96375; 99285; J0696; J1171; J2270; J2405

== ENCOUNTER 2025-02-14 08:49 | Outpatient (OUT) | payer OTHER, SELFPAY ==
--- NOTE | 2025-02-14 08:53 | MM_ITS ---
Patient Name: MAGDALENA CHATTERJEE MR#: [id number] : 1950 Exam Date: 02/14/2025 Ordering Doctor: DR TAVIA PEDERSON RADIOLOGY REPORT PROCEDURE: MM TOMOSYNTHESIS SCREENING BI COMPARISON: MM TOMOSYNTHESIS SCREENING BI, 10/14/2023. MG MAMM RT DIAG FU, 08/30/2022. MG MAMM SCREEN KENIA W CAD, 11/18/2017. INDICATIONS: Screening for malignant neoplasm Calculator Name NCI Breast Cancer Risk Assessment Tool 5 Year Breast Cancer Risk 1.20% Lifetime Breast Cancer Risk 3.00% Personal Breast Cancer No Personal Ovarian Cancer No Treatments None Family Cancers None LOCATION: [facility] BREAST COMPOSITION: There are scattered areas of fibroglandular density. FINDINGS: RIGHT BREAST: No significant suspicious finding. LEFT BREAST: No significant suspicious finding. DIAGNOSTIC CATEGORY 1--NEGATIVE. RECOMMENDATIONS: ROUTINE MAMMOGRAM AND CLINICAL EVALUATION IN 12 MONTHS. PLEASE NOTE: A NORMAL MAMMOGRAM DOES NOT EXCLUDE THE POSSIBILITY OF BREAST CANCER. A CLINICALLY SUSPICIOUS PALPABLE LUMP SHOULD BE BIOPSIED. Dictated by: Richard Lerner MD on 02/14/2025 at 10:58 Approved by: Richard Lerner MD on 02/14/2025 at 12:02
--- OUTSIDE RECORDS SUMMARY | 2025-02-14 09:10 | XMS_ITS | CCD ---
Author Organization [facility] Care Team Providers Care Ore Sampler Name Role Phone DR AWAIS CHAWLA Consulting [...] LISA Stephen Consulting Awais Churchill MD Unavailable [phone] Awais Chawla MD Primary Care Provider ROSEMARIE Chawla Primary Care Provider [phone] MD Anshu Mejía II Attending Provider Anshu Mejaí II Attending UnavailAnshu Allen II Admitting UnavailAwais Romeo Primary Care Unavailable Awais Chawla MD Unavailable [phone] TYREE DEVINE Attending Unavailable ADRIANA PLATT Attending Unavailable ADRIANA PLATT Attending Unavailable TYREE DEVINE Attending Unavailable Allergies Allergy Classification Reported Allergen(s) Allergy Type Date of Onset Reaction(s) Facility (20 sources) traMADol Drug Allergy 0 GI intolerance, Dizziness [facility] Medications Current Medications Medication Drug Class(es) Dates Sig (Normalized) Sig (Original) acetaminophen 250 mg / aspirin 250 mg / caffeine 65 mg oral tablet (19 sources) Platelet Aggregation Inhibitor, Nonsteroidal Anti-inflammatory Drug, Central Nervous System Stimulant, Methylxanthine Start: 03-17-2024 take 1 tablet by mouth every four to six hours Aspirin-Acetamin ophen-Caffeine (Excedrin Migraine) 250-250-65 mg tablet Active 1 TAB PO EVERY 4-6 HOURS March 17, 2024 12:00am take 1 tablet by kris th every six hours as needed for headache ivizsjc-cjuhmteiedvyb-vnpzfslj (Excedrin Extra Strength) 250-250-65 MG tablet Take 1 tablet by mouth every 6 (six) hours if needed for headaches Active aspirin 500 mg oral tablet (6 sources) Platelet Aggregation Inhibitor, Nonsteroidal Anti-inflammatory Drug take 1 tablet by mouth every six hours as needed for pain aspirin 500 MG buffered tablet Take 500 mg by mouth every 6 (six) hours if needed for mild pain. 0 Active cetirizine hydrochloride 10 mg oral tablet (6 sources) Histamine-1 Receptor Antagonist Start: 2022 End: 2023 take 2 tablets by mouth in the morning cetirizine (ZyrTEC) 10 MG tablet Indications: Chronic Urticaria , L50 Chronic Urticaria Take 2 tablets (20 mg) by mouth in the morning and 2 tablets (20 mg) before bedtime. 360 tablet 3 01/29/2023 01/29/2024 Active cholecalciferol 0.05 mg oral capsule (17 sources) Vitamin D Start: 2023 take 1 capsule by mouth once daily cholecalciferol (Vitamin D-3) 50 MCG (2000 UT) capsule Indications: Vitamin D deficiency Take 1 capsule (50 mcg) by mouth Daily 100 capsule 3 10/08/2023 Active [id number] 0.3 ml EPINEPHrine 1 mg/ml auto-injector (20 sources) alpha-Adrenergic Agonist, beta-Adrenergic Agonist, Catecholamine Start: 2022 End: 2023 EPINEPHrine (Epipen) 0.3 MG/0.3ML injection syringe Indications: Chronic idiopathic urticaria Inject 0.3 mL (0.3 mg) as directed if needed for anaphylaxis. Call 911 after use. 2 each 1 05/14/2023 Active famotidine 20 mg oral tablet (6 sources) Histamine-2 Receptor Antagonist Start: 2022 End: 2023 take 1 tablet by mouth in the morning famotidine (Pepcid) 20 MG tablet Indications: Idiopathic urticaria Take 1 tablet (20 mg) by mouth in the morning and 1 tablet (20 mg) before bedtime. 180 tablet 3 01/29/2023 01/29/2024 Active hydrOXYzine pamoate 25 mg oral capsule (6 sources) Antihistamine Start: 2022 End: 2023 take 1 capsule by mouth at bedtime hydrOXYzine pamoate (Vistaril) 25 MG capsule Indications: Idiopathic urticaria Take 1 capsule (25 mg) by mouth at bedtime. 90 capsule 3 01/29/2023 01/29/2024 Active meloxicam 15 mg oral tablet (17 sources) Nonsteroidal Anti-inflammatory Drug Start: 2023 End: 2024 take 1 tablet by mouth once daily as needed for pain meloxicam (Mobic) 15 MG tablet Indications: Primary osteoarthritis of right hip Take 1 tablet (15 mg) by mouth Daily as needed for moderate pain Take with food. 30 tablet 2 02/25/2024 02/09/2025 Discontinued (Other) montelukast 10 mg oral tablet (6 sources) Leukotriene Receptor Antagonist Start: 2022 End: 2023 take 1 tablet by mouth at bedtime montelukast (Singulair) 10 MG tablet Indications: Idiopathic urticaria Take 1 tablet (10 mg) by mouth at bedtime. 90 tablet 3 01/29/2023 01/29/2024 Active predniSONE 50 mg oral tablet (12 sources) Start: 2024 End: 2024 take 1 tablet by mouth once daily as needed predniSONE (Deltasone) 50 MG tablet Indications: Asthma Take 1 tablet (50 mg) by mouth Daily as needed (Urticaria) for up to 10 days PRN 02/09/2025 02/19/2025 Active Start: 12-23-2024 End: 01-02-2025 take 1 tablet by mouth once daily predniSONE (Deltasone) 10 MG tablet Indications: Chronic idiopathic urticaria Take 1 tablet (10 mg) by mouth Daily for 10 days 10 tablet 12/23/2024 01/02/2025 Active Start: 10-27-2024 End: 11-06-2024 take 1 tablet by mouth once daily predniSONE (Deltasone) 10 MG tablet Indications: Chronic idiopathic urticaria Take 1 tablet (10 mg) by mouth Daily for 10 days 10 tablet 10/27/2024 11/06/2024 Active Start: 09-01-2024 End: 09-11-2024 take 1 tablet by mouth once daily predniSONE (Deltasone) 50 MG tablet Indications: Asthma Take 1 tablet (50 mg) by mouth Daily for 10 days 10 tablet 09/01/2024 09/11/2024 Active Start: 07-06-2024 End: 07-16-2024 take 1 tablet by mouth once daily predniSONE (Deltasone) 50 MG tablet Indications: Asthma Take 1 tablet (50 mg) by mouth Daily for 10 days 10 tablet 07/06/2024 07/16/2024 Active Start: 06-04-2024 End: 06-14-2024 take 1 tablet by mouth once daily predniSONE (Deltasone) 50 MG tablet Indications: Asthma Take 1 tablet (50 mg) by mouth Daily for 10 days 10 tablet 06/04/2024 06/14/2024 Active Start: 05-14-2024 End: 05-24-2024 take 1 tablet by mouth once daily predniSONE (Deltasone) 10 MG tablet Indications: Idiopathic urticaria Take 1 tablet (10 mg) by mouth Daily for 10 days 10 tablet 05/14/2024 05/24/2024 Active Start: 2024 End: 04-30-2024 take 1 tablet by mouth once daily predniSONE (Deltasone) 50 MG tablet Indications: Asthma Take 1 tablet (50 mg) by mouth Daily for 10 days 10 tablet 2024 04/30/2024 Active tiZANidine 4 mg oral tablet (2 sources) Central alpha-2 Adrenergic Agonist Start: 02-09-2025 End: 02-24-2025 take 1 tablet by mouth once tiZANidine (Zanaflex) 4 MG tablet Indications: Other idiopathic scoliosis, lumbar region Take 1 tablet (4 mg) by mouth every 12 (twelve) hours if needed for muscle spasms for up to 15 days 30 tablet 02/09/2025 02/24/2025 Active Completed/Discontinued Medications Medication Drug Class(es) Dates Sig (Normalized) Sig (Original) 1 ml omalizumab 150 mg/ml prefilled syringe (20 sources) Anti-IgE Start: 09-15-2024 End: 09-15-2024 omalizumab (Xolair) syringe 150 mg Start: 09-15-2024 End: 09-15-2024 omalizumab (Xolair) syringe 150 mg Start: 09-15-2024 End: 09-15-2024 omalizumab (Xolair) syringe 150 mg Start: 09-15-2024 End: 09-15-2024 omalizumab (Xolair) syringe 150 mg Start: 09-15-2024 End: 09-15-2024 150 mg, Subcutaneous, Once, On Fri09/15/24 at 1200, For 1 dose, Due to viscosity, injection may take 5-10 seconds to administer. Do not administer more than one injection per site. Start: 09-15-2024 End: 09-15-2024 150 mg, Subcutaneous, Once, On Fri09/15/24 at 1200, For 1 dose, Due to viscosity, injection may take 5-10 seconds to administer. Do not administer more than one injection per site. Start: 09-15-2024 End: 09-15-2024 150 mg, Subcutaneous, Once, On Fri09/15/24 at 1200, For 1 dose, Due to viscosity, injection may take 5-10 seconds to administer. Do not administer more than one injection per site. Start: 09-15-2024 End: 09-15-2024 150 mg, Subcutaneous, Once, On Fri09/15/24 at 1200, For 1 dose, Due to viscosity, injection may take 5-10 seconds to administer. Do not administer more than one injection per site. omalizumab (Xola ir) 150 MG/ML injection Inject under the skin Active Problems Active Problems Problem Classification Problem Date Documented Da te Episodic/Chronic Administrative/social admission (2 sources) Patient encounter status; Translations: [Other specified counseling] 02-09-2025 Episodic Allergic reactions (20 sources) Chronic idiopathic urticaria; Translations: [Idiopathic urticaria] Onset: 09-29-2023 2024 Episodic Disorders of lipid metabolism (20 sources) Hypertriglyceridemia ; Translations: [Pure hyperglyceridemia] Onset: 12-23-2022 12-23-2022 Chronic Diverticulosis and diverticulitis (20 sources) Diverticular disease; Translations: [Diverticulosis of intestine, part unspecified, without perforation or abscess without bleeding] Onset: 12-23-2022 12-23-2022 Chronic Menopausal disorders (20 sources) Other primary ovarian failure; Translations: [Decreased estrogen level] Onset: 08-22-2022 12-23-2022 Chronic Nonmalignant breast conditions (1 source) Unspecified lump in the right breast, lower inner quadrant; Translations: [UNS LUMP IN RT BRST LW INR QUADRANT] Onset: 08-22-2022 Episodic Osteoarthritis (20 sources) Osteoarthritis of left knee joint; Translations: [Unilateral primary osteoarthritis, left knee] Onset: 12-23-2022 12-23-2022 Chronic Osteoporosis (20 sources) Age-related osteoporosis without current pathological fracture; Translations: [Senile osteoporosis] Onset: 08-22-2022 12-23-2022 Chronic Other acquired deformities (20 sources) Scoliosis deformity of spine; Translations: [Scoliosis, unspecified] Onset: 12-23-2022 12-23-2022 Chronic Other acquired deformities (1 source) Scoliosis, unspecified; Translations: [Scoliosis [and kyphoscoliosis], idiopathic] 03-17-2024 Chronic Other acquired deformities (20 sources) Leg length inequality; Translations: [Unequal limb length (acquired), unspecified site] Onset: 12-23-2022 12-23-2022 Episodic Other bone disease and musculoskeletal deformities (4 sources) Idiopathic scoliosis of lumbar spine; Translations: [Other idiopathic scoliosis, lumbar region] 09-02-2023 Chronic Other connective tissue disease (20 sources) Artificial knee joint present; Translations: [Presence of unspecified artificial knee joint] Onset: 12-23-2022 12-23-2022 Chronic Other gastrointestinal disorders (19 sources) Stool DNA-based colorectal cancer screening positive; Translations: [Other fecal abnormalities] Onset: 10-01-2023 10-01-2023 Episodic Other nervous system disorders (20 sources) Difficulty walking; Translations: [Difficulty in walking, not elsewhere classified] Onset: 12-23-2022 12-23-2022 Chronic Other non-traumatic joint disorders (20 sources) Hip pain; Translations: [Pain in right hip] Onset: 10-01-2023 03-15-2024 Episodic Other non-traumatic joint disorders (1 source) Pain in right hip; Translations: [Pain in right hip] Onset: 03-17-2024 Episodic Other nutritional; endocrine; and metabolic disorders (20 sources) Hypercalcemia; Translations: [Hypercalcemia] Onset: 12-23-2022 12-23-2022 Chronic Other screening for suspected conditions (not mental disorders or infectious disease) (20 sources) Other abnormal and inconclusive findings on diagnostic imaging of breast; Translations: [Encounter for screening mammogram for malignant neoplasm of breast] Onset: 08-20-2022 Episodic Past or Other Problems Problem Classification Problem Date Documented Da te Episodic/Chronic Mood disorders (17 sources) Mood disorders Onset: 10-01-2023 Resolved: 02-09-2025 10-01-2023 Other connective tissue disease (20 sources) History of total knee arthroplasty; Translations: [Presence of left artificial knee joint] Onset: 12-23-2022 Resolved: 10-01-2023 12-23-2022 Chronic Results Test Name Value Interpretation Reference Range Facil ity CBC (INCLUDES DIFF/PLT)on Basophils (Bld) [#/Vol] 0.063 10*3/uL Normal 0-200 [facility] Comment on above: Performed By: #### 7 600, 6399, 58967 #### [facility] [place] [address] Baggage Smasher: Darrick Rich MD Basophils/100 WBC (Bld) 1.0 % Normal [facility] Comment on above: Performed By: #### 7 600, 6399, 46794 #### [facility] [place] [address] Baggage Smasher: Darrick Rich MD Eosinophils (Bld) [#/Vol] 0.384 10*3/uL Normal 15-500 [facility] Comment on above: Performed By: #### 7 600, 6399, 49258 #### [facility] [place] [address] Baggage Smasher: Darrick Rich MD Eosinophils/100 WBC (Bld) 6.1 % Normal [facility] Comment on above: Performed By: #### 7 600, 6399, 09275 #### [facility] [place] [address] Baggage Smasher: Darrick Rich MD Erythrocyte distribution width (RBC) [Ratio] 12.7 % Normal 11.0-15.0 [facility] Comment on above: Performed By: #### 7 600, 6399, 54023 #### [facility] of [address], [address] [place] [address] Baggage Smasher: Darirck Rich MD Hematocrit (Bld) [Volume fraction] 44.6 % Normal 35.0-45.0 [facility] Comment on above: Performed By: #### 7 600, 6399, 60106 #### [facility] of [address], [address] [place] [address] Baggage Smasher: Darrick Rich MD Hemoglobin (Bld) [Mass/Vol] 14.2 g/dL Normal 11.7-15.5 [facility] Comment on above: Performed By: #### 7 600, 6399, 25212 #### [facility] of [address], [address] [place] [address] Baggage Smasher: Darrick Rich MD Lymphocytes (Bld) [#/Vol] 1.922 10*3/uL Normal 850-3900 [facility] Comment on above: Performed By: #### 7 600, 6399, 90174 #### [facility] of [place] [address] Baggage Smasher: Darrick Rich MD Lymphocytes/100 WBC (Bld) 30.5 % Normal [facility] Comment on above: Performed By: #### 7 600, 6399, 91737 #### [facility] of [place] [address] Baggage Smasher: Darrick Rich MD MCH (RBC) [Entitic mass] 31.1 pg Normal 27.0-33.0 [facility] Comment on above: Performed By: #### 7 600, 6399, 64462 #### [facility] of [place] [address] Baggage Smasher: Darrick Rich MD MCHC (RBC) [Mass/Vol] 31.8 g/dL Low 32.0-36.0 [facility] Comment on above: Result Comment: For adults, a slight decrease in the calculated MCHC value (in the range of 30 to 32 g/dL) is most likely not clinically significant; however, it should be interpreted with caution in correlation with other red cell parameters and the patient's clinical condition. Performed By: #### 7 600, 6399, 88488 #### [facility] of [place] [address] Baggage Smasher: Darrick Rich MD MCV (RBC) [Entitic vol] 97.8 fL Normal 80.0-100.0 [facility] Comment on above: Performed By: #### 7 600, 6399, 22324 #### [facility] of [place] [address] Baggage Smasher: Darrick Rich MD Monocytes (Bld) [#/Vol] 0.422 10*3/uL Normal 200-950 [facility] Comment on above: Performed By: #### 7 600, 6399, 73750 #### [facility] of [place] [address] Baggage Smasher: Darrick Rich MD Monocytes/100 WBC (Bld) 6.7 % Normal [facility] Comment on above: Performed By: #### 7 600, 63, 03626 #### [facility] of [place] [address] Baggage Smasher: Darrick Rich MD Neutrophils (Bld) [#/Vol] 3.509 10*3/uL Normal 6390-5849 [facility] Comment on above: Performed By: #### 7 600, 6399, 40927 #### [facility] of [place] [address] Baggage Smasher: Darrick Rich MD Neutrophils/100 WBC (Bld) 55.7 % Normal [facility] Comment on above: Performed By: #### 7 600, 6399, 14112 #### [facility] of [place] [address] Baggage Smasher: Darrick Rich MD Platelet mean volume (Bld) [Entitic vol] 9.8 fL Normal 7.5-12.5 [facility] Comment on above: Performed By: #### 7 600, 6399, 91866 #### [facility] of [address], [address] [place] [address] Baggage Smasher: Darrick Rich MD Platelets (Bld) [#/Vol] 244 10*3/uL Normal 140-400 [facility] Comment on above: Performed By: #### 7 600, 6399, 99827 #### [facility] of [address], [address] [place] [address] Baggage Smasher: Darrick Rich MD RBC (Bld) [#/Vol] 4.56 10*6/uL Normal 3.80-5.10 [facility] Comment on above: Performed By: #### 7 600, 6399, 57518 #### [facility] of [place] [address] Baggage Smasher: Darrick Rich MD WBC (Bld) [#/Vol] 6.3 10*3/uL Normal 3.8-10.8 [facility] Comment on above: Performed By: #### 7 600, 6399, 60780 #### [facility] of [place] [address] Baggage Smasher: Darrick Rich MD [facility] 02-12-2025 Albumin [Mass/Vol] 4.2 g/dL Normal 3.6-5.1 [facility] Comment on above: Performed By: #### 7 600, 6399, 79875 #### [facility] of [place] [address] Baggage Smasher: Darrick Rich MD Albumin/Globulin [Mass ratio] 2.1 {ratio} Normal 1.0-2.5 [facility] Comment on above: Performed By: #### 7 600, 6399, 76863 #### [facility] of [place] [address] Baggage Smasher: Darrick Rich MD ALP [Catalytic activity/Vol] 55 U/L Normal 37-153 [facility] Comment on above: Performed By: #### 7 600, 6399, 92491 #### [facility] of [address], [address] [place] [address] Baggage Smasher: Darrick Rich MD ALT [Catalytic activity/Vol] 9 U/L Normal 6-29 [facility] Comment on above: Performed By: #### 7 600, 6399, 47966 #### [facility] of [address], [address] [place] [address] Baggage Smasher: Darrick Rich MD AST [Catalytic activity/Vol] 14 U/L Normal 10-35 [facility] Comment on above: Performed By: #### 7 600, 6399, 58245 #### [facility] of [address], [address] [place] [address] Baggage Smasher: Darrick Rich MD Bilirubin [Mass/Vol] 0.5 mg/dL Normal 0.2-1.2 [facility] Comment on above: Performed By: #### 7 600, 6399, 38221 #### [facility] of [address], [address] [place] [address] Baggage Smasher: Darrick Rich MD BUN/CREATININE RATIO SEE NOTE: Normal 6-22 [facility] Comment on above: Result Comment: Not Reported: BUN and Creatinine are within reference range. Performed By: #### 7 600, 6399, 44486 #### [facility] of [address], [address] [place] [address] Baggage Smasher: Darrick Rich MD Calcium [Mass/Vol] 9.8 mg/dL Normal 8.6-10.4 [facility] Comment on above: Performed By: #### 7 600, 6399, 75707 #### [facility] of [address], [address] [place] [address] Baggage Smasher: Darrick Rich MD Chloride [Moles/Vol] 109 mmol/L Normal 98-110 [facility] Comment on above: Performed By: #### 7 600, 6399, 02627 #### [facility] of [address], [address] [place] [address] Baggage Smasher: Darrick Rich MD CO2 [Moles/Vol] 24 mmol/L Normal 20-32 [facility] Comment on above: Performed By: #### 7 600, 6399, 83190 #### [facility] [place] [address] Baggage Smasher: Darrick Rich MD Creatinine [Mass/Vol] 0.79 mg/dL Normal 0.60-1.00 [facility] Comment on above: Performed By: #### 7 600, 6399, 73939 #### [facility] [place] [address] Baggage Smasher: Darrick Rich MD GFR/1.73 sq M.predicted among non-blacks MDRD (S/P/Bld) [Vol rate/Area] 79 mL/min/{1.73_m2} Normal > OR = 60 [facility] Comment on above: Performed By: #### 7 600, 63, 00012 #### [facility] of [place] [address] Baggage Smasher: Darrick Rich MD Globulin (S) [Mass/Vol] 2.0 g/dL Normal 1.9-3.7 [facility] Comment on above: Performed By: #### 7 600, 63, 80343 #### [facility] [place] [address] Baggage Smasher: Darrick Rich MD Glucose [Mass/Vol] 89 mg/dL Normal 65-99 [facility] Comment on above: Result Comment: Fasting reference interval Performed By: #### 7 600, 6399, 40548 #### [facility] of [place] [address] Baggage Smasher: Darrick Rich MD Potassium [Moles/Vol] 4.1 mmol/L Normal 3.5-5.3 [facility] Comment on above: Performed By: #### 7 600, 6399, 88096 #### [facility] of [place] [address] Baggage Smasher: Darrick Rich MD Protein [Mass/Vol] 6.2 g/dL Normal 6.1-8.1 [facility] Comment on above: Performed By: #### 7 600, 6399, 67171 #### [facility] [place] [address] Baggage Smasher: Darrick Rich MD Sodium [Moles/Vol] 141 mmol/L Normal 135-146 [facility] Comment on above: Performed By: #### 7 600, 6399, 22373 #### [facility] [place] [address] Baggage Smasher: Darrick Rich MD Urea nitrogen [Mass/Vol] 20 mg/dL Normal 7-25 [facility] Comment on above: Performed By: #### 7 600, 6399, 82793 #### [facility] [place] [address] Baggage Smasher: Darrick Rich MD LIPID PANEL, [facility] 01-19 Cholesterol [Mass/Vol] 210 mg/dL High <200 [facility] Comment on above: Order Comment: FASTI NG:YES FASTING: YES Performed By: #### 7 600, 6399, 05912 #### [facility] [place] [address] Baggage Smasher: Darrick Rich MD Cholesterol in HDL [Mass/Vol] 68 mg/dL Normal > OR = 50 [facility] Comment on above: Order Comment: FASTI NG:YES FASTING: YES Performed By: #### 7 600, 6399, 29157 #### [facility] [place] [address] Baggage Smasher: Darrick Rich MD Cholesterol in LDL [Mass/Vol] 117 mg/dL High [facility] Comment on above: Order Comment: FASTI NG:YES FASTING: YES Result Comment: Refe rence range: <100 Desirable range <100 mg/dL for primary prevention; <70 mg/dL for patients with CHD or diabetic patients with > or = 2 CHD risk factors. LDL-C is now calculated using the Chintan-Irby calculation, which is a validated novel method providing better accuracy than the Friedewald equation in the estimation of LDL-C. Chintan WHITE et al. PEBBLES. 2013;310(19): 3446-3674 (http://education.IRIS.TV/faq/TRM890) Performed By: #### 7 600, 6399, 47633 #### [facility] [address], [address] [place] [address] Baggage Smasher: Darrick Rich MD Cholesterol.total/C holesterol in HDL [Mass ratio] 3.1 {ratio} Normal <5.0 [facility] Comment on above: Order Comment: FASTI NG:YES FASTING: YES Performed By: #### 7 600, 6399, 77499 #### [facility] [address], [address] [place] [address] Baggage Smasher: Darrick Rich MD NON HDL CHOLESTEROL 142 mg/dL (calc) High <130 [facility] Comment on above: Order Comment: FASTI NG:YES FASTING: YES Result Comment: For patients with diabetes plus 1 major ASCVD risk factor, treating to a non-HDL-C goal of <100 mg/dL (LDL-C of <70 mg/dL) is considered a therapeutic option. Performed By: #### 7 600, 6399, 68869 #### [facility] [address], [address] [place] [address] Baggage Smasher: Darrick Rich MD Triglyceride [Mass/Vol] 137 mg/dL Normal <150 [facility] Comment on above: Order Comment: FASTI NG:YES FASTING: YES Performed By: #### 7 600, 6399, 74411 #### [facility] [address], [address] [place] [address] Baggage Smasher: Darrick Rich MD VITAMIN D,25-OH,TOTAL,IAon 0 02-12-2025 VITAMIN D,25-OH,TOTAL,IA 33 ng/mL Normal 30-100 [facility] Comment on above: Result Comment: Magda min D Status 25-OH Vitamin D: Deficiency: <20 ng/mL Insufficiency: 20 - 29 ng/mL Optimal: > or = 30 ng/mL For 25-OH Vitamin D testing on patients on D2-supplementation and patients for whom quantitation of D2 and D3 fractions is required, the [facility](TM) 25-OH VIT D, (D2,D3), LC/MS/MS is recommended: order code 64278 (patients >2yrs). See Note 1 Note 1 For additional information, please refer to http://education.IRIS.TV/faq/RUL635 (This link is being provided for informational/ educational purposes only.) Performed By: #### 7 600, 6399, 69150 #### [facility] [address], [address] [place] [address] Baggage Smasher: Darrick Rich MD XR hip RT min 2V(w/wo pelvis )*on 03-17-2024 XR hip RT min 2V(w/wo pelvis)* [facility] [address] [place] [address] XRay Report Signed Patient: Ivana Viera V MR#: [id number] : 1950 Acct:[id number] Age/Sex: 73 / F ADM Date: 03/17/24 Loc: [facility] Room: Type: [facility] Attending Dr: Anshu Mejía II, MD Copies to: Anshu Mejía MD Ordering Provider: Anshu Mejía MD Date of Service: 03/17/24 XR/XR hip RT min 2V(w/wo pelvis)*: M25.551 - Pain in right hip RIGHT HIP - 2 views: 1 view pelvis CLINICAL HISTORY: Right hip pain for years. COMPARISON: None FINDINGS: Degenerative changes involving the visualized lower lumbar spine, SI joints and pubic symphysis. Joint spaces of the hips appear maintained. No acute bony process. XR/XR hip RT min 2V(w/wo pelvis)* IMPRESSION: DEGENERATIVE CHANGES WITHOUT ACUTE BONY PROCESS.. Impression dictated by: Juan Isidro Jr., D.O.03/17/2024 2:35 PM Dictation Location: [place] [address] Transcribed By: [facility] 03/17/24 1435 Dictated By: Juan Isidro Jr, DO 03/17/24 1435 Signed By: 03/17/24 1435 Normal [facility] XR lumbar spine AP/LAT/FLX/E XTon 03-17-2024 XR lumbar spine AP/LAT/FLX/EXT [facility] [address] [place] [address] XRay Report Signed Patient: Ivana Viera V MR#: [id number] : 1950 Acct:[id number] Age/Sex: 73 / F ADM Date: 03/17/24 Loc: [facility] Room: Type: [facility] Attending Dr: Anshu Mejía II, MD Copies to: Anshu Mejía MD Ordering Provider: Asnhu Mejía MD Date of Service: 03/17/24 XR/XR lumbar spine AP/LAT/FLX/EXT: M25.551 - Pain in right hip LUMBAR SPINE - 4 views CLINICAL HISTORY: Right hip pain radiating to lumbar and right lower ribs. COMPARISON: None FINDINGS: Scoliosis. Bones are grossly demineralized. Vertebral body heights appear maintained. Endplate and facet joint degenerative changes with moderate disc space narrowing L2-L3 and L1-L2. No pathological motion on flexion or extension views. XR/XR lumbar spine AP/LAT/FLX/EXT IMPRESSION: DEGENERATIVE CHANGES INVOLVING THE LUMBAR SPINE WITH MODERATE DISC SPACE NARROWING L1-L3. Impression dictated by: Juan Isidro Jr., DReenaOReena03/17/2024 2:37 PM Dictation Location: [place] [address] Transcribed By: [facility] 03/17/24 1437 Dictated By: Juan Isidro Jr, DO 03/17/24 1436 Signed By: 03/17/24 1437 Normal [facility] MG MAMM RT DIAG FUon 023 MG MAMM RT DIAG FU Patient: IVANA VIERA V. Exam Date: 08/30/2022 : 1950 Gender:F Ordering : DR AWAIS CHAWLA M.D. Admission #: [id number] Family : Order #: [id number] CLICK HERE TO VIEW EXAM RADIOLOGY REPORT [...] Treatments None Family Cancers None LOCATION: [facility] BREAST COMPOSITION: Scattered areas fibroglandular density. FINDINGS: [...] MD on 08/30/2022 at 15:13 Normal [facility] US BREAST RIGHT LIMITEDon US BREAST RIGHT LIMITED Patient: IVANA VIERA V. Exam Date: 08/30/2022 : 1950 Gender:F Ordering : DR AWAIS CHAWLA M.D. Admission #: [id number] Family : Order #: [id number] CLICK HERE TO VIEW EXAM RADIOLOGY REPORT [...] Treatments None Family Cancers None LOCATION: [facility] BREAST COMPOSITION: Scattered areas fibroglandular density. FINDINGS: [...] MD on 08/30/2022 at 15:13 Normal The [facility] MAMM SCREEN 3D KENIA CADon 08-20-2022 MG MAMM SCREEN 3D KENIA CAD Patient: IVANA VIERA V. Exam Date: 08/20/2022 : 1950 Gender:F Ordering : DR AWAIS CHAWLA M.D. Admission #: [id number] Family : Order #: [id number] CLICK HERE TO VIEW EXAM RADIOLOGY REPORT [...] Treatments None Family Cancers None LOCATION: [facility] BREAST COMPOSITION: Scattered areas fibroglandular density. FINDINGS: [...] Lisa Redding MD on 08/21/2022 at 08:49 [facility] XR DEXA BONE DENSITYon 08-20 XR [...] High Fracture Risk Electronically authenticated by: EUNICE GRENE Date: 2022-08-20 15:28 [facility] Vital Signs Date Time Vital Sign Value Performing Clinician Facility 02-09-2025 09:30-0400 Body height 170.2 cm Adriana PEDERSON Work Phone: [facility] 02-09-2025 09:30-0400 Body mass index (BMI) [Ratio] 23.81 kg/m2 Adriana PEDERSON Work Phone: [facility] 02-09-2025 09:30-0400 Body weight 68.95 kg Adriana PEDERSON Work Phone: [facility] 02-09-2025 09:30-0400 Diastolic blood pressure 88 mm[Hg] Adriana PEDERSON Work Phone: [facility] 02-09-2025 09:30-0400 Heart rate 88 /min Adriana Platt PA Work Phone: [facility] 02-09-2025 09:30-0400 Respiratory rate 16 /min Adriana Platt PA Work Phone: [facility] 02-09-2025 09:30-0400 SaO2% (BldA) [Mass fraction] 96 % Adriana Platt PA Work Phone: [facility] 02-09-2025 09:30-0400 Systolic blood pressure 136 mm[Hg] Adriana Platt PA Work Phone: [facility] 09-15-2024 12:26-0500 Body mass index (BMI) [Ratio] 23.49 kg/m2 Tyree Devine MD Work Phone: [facility] 09-15-2024 12:26-0500 Body weight 68.04 kg Tyree Devine MD Work Phone: [facility] 03-17-2024 09:10-0400 Body height 170.18 cm II Awais Chawla Work Phone: [facility] 03-17-2024 09:10-0400 Body mass index (BMI) [Ratio] 23 kg/m2 II Awais Chawla Work Phone: [facility] 03-17-2024 09:10-0400 Body weight 66.67 kg II Awais Chawla Work Phone: [facility] Encounters Encounter Date Encounter Type Care Provider Facility Start: 02-09-2025 End: 02-09-2025 Bamboo flowsheet Adriana PEDERSON Work Phone: [facility] Start: 02-09-2025 End: 02-09-2025 Bamboo flowsheet Adriana Platt PA Work Phone: [facility] Start: 02-09-2025 End: 02-09-2025 Patient encounter procedure Adriana PEDERSON Work Phone: [facility] Comment on above: Medicare annual well ness visit, subsequent (Primary Dx); ACP (advance care planning); Diverticulosis; Age-related osteoporosis without current pathological fracture ; Presence of left artificial knee joint; Chronic right hip pain; Leg length discrepancy; Primary osteoarthritis of left knee; Primary osteoarthritis of right hip; Other idiopathic scoliosis, lumbar region; Abnormal mammogram; Chronic idiopathic urticaria; Decreased estrogen level; Difficulty walking; Hypercalcemia; Hypertriglyceridemia ; Positive colorectal cancer screening using Cologuard test; Encounter for screening mammogram for malignant neoplasm of breast Start: 02-09-2025 End: 02-09-2025 ambulatory ADRIANA PLATT Not Available Start: 01-31-2025 End: 01-31-2025 ambulatory TYREE RAMBASEK Not Available Start: 01-24-2025 End: 01-24-2025 Telephone encounter Tyree Devine MD Work Phone: [facility] Start: 01-05-2025 End: 01-05-2025 ambulatory TYREE RAMBASEK Not Available Start: 12-23-2024 End: 12-23-2024 Refill Geneva Wells LPN Work Phone: [facility] Comment on above: Chronic idiopathic u rticaria (Primary Dx) Start: 12-08-2024 End: 12-08-2024 ambulatory TYREE RAMBASEK Not Available Start: 11-10-2024 End: 11-10-2024 ambulatory TYREE RAMBASEK Not Available Start: 10-27-2024 End: 10-27-2024 Refill Geneva Wells LPN Work Phone: [facility] Comment on above: Chronic idiopathic u rticaria (Primary Dx) Start: 10-13-2024 End: 10-13-2024 ambulatory TYREE RAMBASEK Not Available Start: 09-15-2024 End: 09-15-2024 Bamboo isabella Devine MD Work Phone: [facility] Start: 09-15-2024 End: 09-15-2024 Erasto Devine MD Work Phone: [facility] Start: 09-15-2024 End: 09-15-2024 Office outpatient visit 15 minutes Tyree Devine MD Work Phone: [facility] Comment on above: Chronic idiopathic u rticaria (Primary Dx) Start: 09-15-2024 End: 09-15-2024 ambulatory TYREE DEVINE Not Available Start: 09-01-2024 End: 09-01-2024 Telephone encounter Tyree Devine MD Work Phone: [facility] Start: 08-16-2024 End: 08-16-2024 ambulatory TYREE RAMBASEK Not Available Start: 08-10-2024 End: 08-13-2024 Telephone encounter Tyree Devine MD Work Phone: [facility] Start: 07-26-2024 End: 08-04-2024 Telephone encounter Tyree Devine MD Work Phone: [facility] Start: 07-06-2024 End: 07-06-2024 Telephone encounter Tyree Devine MD Work Phone: [facility] Start: 06-30-2024 End: 06-30-2024 ambulatory TYREE RAMBASEK Not Available Start: 06-04-2024 End: 06-04-2024 Telephone encounter Tyree Devine MD Work Phone: [facility] Start: 05-24-2024 End: 05-24-2024 ambulatory TYREE RAMBASEK Not Available Start: 05-14-2024 End: 05-14-2024 Refill Geneva Wells LPN Work Phone: [facility] Comment on above: Idiopathic urticaria (Primary Dx) Start: 04-29-2024 End: 05-02-2024 Clinisync Result Encounter Generic External Data Provider [facility] Unsolicited Start: 04-29-2024 End: 05-02-2024 Clinisync Result Encounter Generic External Data Provider [facility] Unsolicited Start: 04-26-2024 End: 04-26-2024 ambulatory TYREE RAMBASEK Not Available Start: 2024 End: 2024 Telephone encounter Tyree Devine MD Work Phone: [facility] Start: 03-29-2024 End: 03-29-2024 ambulatory TYREE GUERREROBASEK Not Available Start: 03-17-2024 End: 03-17-2024 ambulatory II Awais Chawla Work Phone: [facility] Work Phone: Start: 03-17-2024 End: 03-17-2024 Patient encounter procedure II Awais Chawla Work Phone: [facility] Work Phone: Start: 03-01-2024 End: 03-01-2024 ambulatory TYREE DEVINE Not Available Start: 02-25-2024 End: 02-25-2024 ambulatory ADRIANA PLATT Not Available Start: 09-03-2023 Bamboo flowsheet Angel Blevins nce [employer] [facility] Start: 09-03-2023 Bamboo flowsheet Angel Blevins deandree [employer] [facility] Start: 09-03-2023 Telephone encounter [...] PT is needed.) Start: 09-02-2023 Bamboo flowsheet Angel carrerae [employer] [facility] Start: 09-02-2023 Bamboo flowsheet Angel trotter [employer] [facility] Start: 09-02-2023 End: 09-02-2023 ambulatory Angel Bakari [employer] [facility] Comment on above: Other idiopathic sco liosis, lumbar region (Primary Dx) Start: 09-01-2023 Bamboo flowsheet Tuyet carpenter PT Work Phone: [facility] Start: 09-01-2023 Bamboo flowsheet Tuyet carpenter PT Work Phone: [facility] Start: 08-29-2023 End: 02-12-2024 ambulatory Tuyet Jimenes PT Work Phone: [facility] Comment on above: Other idiopathic sco liosis, lumbar region (Primary Dx) Start: 08-30-2022 End: 08-31-[address] AWAIS CHAWLA Facility:[facility] Start: 08-20-2022 End: 08-21-[address] AWAIS CHAWLA Facility:[facility] Procedures Date Procedure Procedure Detail Performing Clinician Start: 04-29-2024 Bacteria identified in Urine by Culture Generic External Data Provider Start: 03-17-2024 X-ray of lumbar spin e, four views II Awais Chawla Work Phone: Start: 03-17-2024 Plain X-ray of right hip II Awais Chawla Work Phone: Start: 10-14-2023 Mammography Tyree dean MD Work Phone: Start: 08-30-2022 Mammography Tuyet mcgowan PT Work Phone: Plan of Treatment Date Care Activity Detail Author Start: 02-09-2026 Medicare Annual Wellness (AWV) Medicare Annual Wellness (AWV) [facility] Start: 02-09-2026 Pneumococcal Vaccine : 65+ Years (1 of 1 - PCV) Pneumococcal Vaccine: 65+ Years (1 of 1 - PCV) [facility] Comment on above: Postponed from 04/20 (Patient Refused) Start: 02-09-2026 Screening for malignant neoplasm of breast Mammogram [facility] Comment on above: Postponed from 10/13 (Patient Refused) Start: 02-09-2026 Screening for malignant neoplasm of colon Colorectal Cancer Screening [facility] Comment on above: Postponed from 04/20 (Patient Refused) Start: 01-17-2026 Influenza vaccination Influenza Vacc ine (#1) [facility] Comment on above: Postponed from 03/21 (Patient Refused) Start: 08-28-2025 Screening for malignant neoplasm of colon [facility] Start: 03-21-2025 Influenza vaccination [facility] Start: 03-16-2025 End: 03-16-2025 Patient encounter procedure [facility] Start: 03-02-2025 End: 03-02-2025 Clinical Support 03/02/2025 10:00 AM EDT Clinical Support [facility] [address] [place] [address] [facility] Start: 02-09-2025 End: 04-12-2026 DBT Breast - bilateral screening Bilateral screening mammogram with tomosynthesis Imaging Routine Encounter for screening mammogram for malignant neoplasm of breast Expected: 02/09/2025 (Approximate), Expires: 04/12/2026 [facility] Work Phone: Comment on above: Expected: 02/09/2025 (Approximate), Expires: 04/12/2026 Start: 02-09-2025 End: 02-09-2025 Patient encounter procedure 02/09/2025 9:30 AM EDT Office Visit [facility] [address] [place] [id number] Adriana Platt PA [address] [place] [address] Arrived [facility] Comment on above: Arrived Start: 01-31-2025 End: 01-31-2025 Clinical Support 01/31/2025 10:30 AM EDT Clinical Support [facility] [address] [place] [address] [facility] Start: 01-05-2025 End: 01-05-2025 Clinical Support 01/05/2025 10:00 AM EDT Clinical Support [facility] [address] [place] [address] [facility] Start: 11-10-2024 End: 11-10-2024 Clinical Support 11/10/2024 10:00 AM EDT Clinical Support [facility] [address] [place] [address] [facility] Start: 10-13-2024 Screening for malignant neoplasm of breast Mammogram [facility] Start: 10-13-2024 End: 10-13-2024 Clinical Support 10/13/2024 10:00 AM EDT Clinical Support [facility] [address] [place] [address] [facility] Start: 09-30-2024 Medicare Annual Wellness (AWV) Medicare Annual Wellness (AWV) [facility] Start: 09-15-2024 End: 09-15-2024 Clinical Support [facility] Comment on above: Arrived Start: 08-16-2024 End: 08-16-2024 Clinical Support 08/16/2024 10:00 AM EST Clinical Support [facility] [address] [place] [address] [facility] Start: 08-11-2024 End: 08-11-2024 Clinical Support 08/11/2024 10:00 AM EST Clinical Support [facility] [address] [place] [address] [facility] Start: 07-28-2024 End: 07-28-2024 Clinical Support 07/28/2024 10:45 AM EST Clinical Support [facility] [address] [place] [address] [facility] Start: 06-28-2024 End: 06-28-2024 Clinical Support 06/28/2024 10:00 AM EST Clinical Support [facility] [address] [place] [address] [facility] Start: 06-15-2024 End: 06-15-2024 Patient encounter procedure 06/15/2024 1:45 PM EST Office Visit [facility] [address] [facility] [address] [place] [address] Terrell Fox, [address] [place] [address] [facility] Start: 05-24-2024 End: 05-24-2024 Clinical Support 05/24/2024 10:00 AM EST Clinical Support [facility] [address] [place] [address] [facility] Start: 04-26-2024 End: 04-26-2024 Clinical Support [facility] Start: 03-21-2024 Influenza vaccination Influenza Vacc ine (#1) [facility] Start: 03-17-2024 X-ray of lumbar spin e, four views XR lumbar spine AP/LAT/FLX/EXT [facility] Start: 03-17-2024 XR Lumbar spine 4 Views [facility] Start: 03-17-2024 Plain X-ray of right hip XR hip RT min 2V(w/wo pelvis)* [facility] Start: 03-17-2024 XR Hip - right 2 Views [facility] Start: 09-29-2023 End: 09-29-2023 Clinical Support 09/29/2023 10:15 AM EDT Clinical Support [facility] [address] [place] [phone] [facility] Start: 09-17-2023 End: 09-17-2023 Patient encounter procedure 09/17/2023 9:20 AM EST Office Visit [facility] [address] [place] [phone] Tyree Devine MD [address] [place] [address] [facility] Start: 09-05-2023 End: 09-05-2023 ambulatory 09/05/2023 10:00 AM EST Treatment [facility] [address] [place] [phone] Angel Villegas PTA [facility] Start: 09-02-2023 End: 09-02-2023 ambulatory [facility] Comment on above: Arrived Start: 09-01-2023 End: 09-01-2023 Clinical Support 09/01/2023 11:00 AM EST Clinical Support [facility] [address] [place] [phone] [facility] Start: 08-30-2023 Screening for malignant neoplasm of breast Mammogram [facility] Start: 08-15-2023 Medicare Annual Wellness (AWV) Medicare Annual Wellness (AWV) [facility] Start: 03-21-2023 Influenza vaccination Influenza Vacc ine (#1) [facility] Start: 2017 Pneumococcal Vaccine : 65+ Years (1 - PCV) Pneumococcal Vaccine: 65+ Years (1 - PCV) [facility] Start: 2017 Pneumococcal Vaccine : 65+ Years (1 of 1 - PCV) Pneumococcal Vaccine: 65+ Years (1 of 1 - PCV) [facility] Start: 2002 Pneumococcal Vaccine : 65+ Years (1 of 1 - PCV) Pneumococcal Vaccine: 65+ Years (1 of 1 - PCV) [facility] Start: 1950 Screening for malignant neoplasm of colon [facility] Bacteria identified in Urine by Culture URINE CULTURE, ROUTINE Lab Routine 04/29/2024 5:33 PM EDT [facility] Payers Date Payer Category Payer Self-pay 2022 Medicare (Managed Care) [facility] [id number] 2022 Unknown [id number] 2020 Unknown [id number] 1950 Unknown [id number] 2.16.840.1.799209.3.579. 2.593 1950 Unknown [id number] 2.16.840.1.614499.3.579. 2.593 1950 Unknown [id number] 2.16.840.1.981467.3.579. 2.1259 1950 Unknown [id number] 2.16.840.1.757610.3.579. 2.1259 1952 Unknown [id number] 2.16.840.1.583332.3.579. 2.1258 1952 Unknown [id number] 2.16.840.1.987995.3.579. 2.1258 1952 Unknown [id number] 2.16.840.1.301711.3.579. 2.1258 1952 Unknown [id number] 2.16.840.1.016885.3.579. 2.1258 1952 Unknown [id number] 2.16.840.1.805632.3.579. 2.1258 1952 Unknown [id number] 2.16.840.1.464411.3.579. 2.1258 1952 Unknown [id number] 2.16.840.1.186759.3.579. 2.1258 1952 Unknown [id number] 2.16.840.1.525829.3.579. 2.1258 1952 Unknown [id number] 2.16.840.1.638806.3.579. 2.1258 1952 Unknown [id number] 2.16.840.1.876843.3.579. 2.1258 1952 Unknown [id number] 2.16.840.1.739237.3.579. 2.1258 1952 Unknown [id number] 2.16.840.1.089654.3.579. 2.1258 1952 Unknown [id number] 2.16.840.1.955662.3.579. 2.1258 Unknown [id number] 2.16.840.1.238521.3.579. 2.531 Social History Date Type Detail Facility Start: 12-23-2022 Tobacco smoking status KYIS Never smoked tobacco [facility] Start: 12-23-2022 Tobacco use and exposure Smokeless tobacco non-user [facility] Start: 05-14-2023 End: 09-15-2024 Alcohol intake Lifetime non-drinker (finding) [facility] Start: 05-14-2023 End: 02-09-2025 History of Social function [facility] Work Phone: Start: 05-14-2023 End: 02-09-2025 Tobacco use panel [facility] Work Phone: Start: 1950 Sex Assigned At Not on file N [facility] Start: 1950 Sex Assigned At Female F [facility] Start: 02-09-2025 Alcoholic beverage intake Ex-drinker (finding) [facility] NEGATED: Highlighted row [facility] Functional Status Date Assessment Result Facility 02-09-2025 Patient Health Quest ionnaire 2 item (PHQ-2) [Reported] [facility]ly [facility], [facility] Clinical Notes 08-29-2023 to 02-09-2025 BG Cruz - 02/09/2025 9:30 AM Marylu Mahan RN - 09/15/2024 12:00 PM ESTTotiffany Devine MD - 09/15/2024 12:00 PM ESTTelephone Encounter - Geneva Wells LPN - 08/10/2024 11:43 AM EST Note Date & Type Note Facility 02-09-2025 History of Present illness Narrative Images from the original note were not included. Subjective Patient ID: Ivana Viera is a 74 y.o. female who presents for Medicare Annual Wellness Visit Subsequent. Wakes up every morning with a headache. C/o neck stiffness and neck pain. C/o hip and low back pain due to scoliosis. States it affects how she walks. Some days are better than others. Medicare Wellness Over the past 2 weeks, how often have you been bothered by any of the following problems? Little interest or pleasure in doing things: Not at all Feeling down, depressed, or hopeless: Not at all Patient Health Questionnaire-2 Score: 0 Over the past 2 weeks, how often have you been bothered by any of the following problems? Trouble falling or staying asleep, or sleeping too much: Not at all Feeling tired or having little energy: Not at all Poor appetite or overeating: Not at all Feeling bad about yourself - or that you are a failure or have let yourself or your family down: Not at all Trouble concentrating on things, such as reading the newspaper or watching television: Not at all Moving or speaking so slowly that other people could have noticed? Or the opposite - being so fidgety or restless that you have been moving around a lot more than usual.: Not at all Thoughts that you would be better off or hurting yourself in some way: Not at all Patient Health Questionnaire-9 Score: 0 Richardson Fall Risk History of Falling, Immediate or Within 3 Months: No Health Risk Assessment Form Do you need help eating, bathing, using the toilet, dressing, or getting around your home?: No Can you prepare your own meals?: Yes Can you do your own housework without help?: Yes Can you shop for groceries or clothes without help?: Yes Do you exercise for about 20 minutes 3 or more days a week?: Yes How confident are you that you can control and manage most of your health problems?: Very confident Can you mange your money, credit cards and accounts, pay bills and taxes?: Yes Vision Screening: Yes, no gross abnormalities Hearing Screening: Yes, no gross abnormalities Cognitive Screening Self Assessment: No overt cognitive deficiency is apparent by direct observation Three Word Registration: Banana, [place], Chair Clock Drawing: Normal Clock - 2 Three Word Recall: All 3 words correct - 3 Total Score (0-5 Points): 5 Pain Assessment Pain Score: 7 Advance Care Planning Do you have a living will?: Yes Do you have a medical power of attorney at law?: Yes Current Outpatient Medications on File Prior to Visit Medication Sig Dispense Refill [DISCONTINUED] predniSONE (Deltasone) 50 MG tablet Take 1 tablet (50 mg) by mouth Daily for 10 days (Patient taking differently: Take 50 mg by mouth Daily PRN) 10 tablet 0 eyjqpgz-hmhvwkftucrax-uuigaksr (Excedrin Extra Strength) 250-250-65 MG tablet Take 1 tablet by mouth every 6 (six) hours if needed for headaches cholecalciferol (Vitamin D-3) 50 MCG (2000 UT) capsule Take 1 capsule (50 mcg) by mouth Daily 100 capsule 3 EPINEPHrine (Epipen) 0.3 MG/0.3ML injection syringe Inject 0.3 mL (0.3 mg) as directed if needed for anaphylaxis. Call 911 after use. 2 each 1 omalizumab (Xolair) 150 MG/ML injection Inject under the skin [DISCONTINUED] meloxicam (Mobic) 15 MG tablet Take 1 tablet (15 mg) by mouth Daily as needed for moderate pain Take with food. 30 tablet 2 No current facility-administered medications on file prior to visit. I have reviewed and reconciled the history and medication list with the patient today. Allergies Allergen Reactions Tramadol GI intolerance and Dizziness Vomiting Social History Tobacco Use Smoking status: Never Smokeless tobacco: Never Vaping Use Vaping status: Never Used Substance Use Topics Alcohol use: Not Currently Drug use: Never Family History Problem Relation Name Age of Onset COPD Mother No Known Problems Father Past Medical History: Diagnosis Date Bronchitis Diverticulitis 06/2021 Scoliosis Past Surgical History: Procedure Laterality Date APPENDECTOMY TOTAL KNEE ARTHROPLASTY Left 06/07/2020 dr fox Visit Vitals BP 136/88 Pulse 88 Resp 16 Ht 5' 7 Wt 152 lb SpO2 96% BMI 23.81 kg/m Smoking Status Never BSA 1.8 m Review of Systems Constitutional: Negative for chills, fatigue and fever. HENT: Negative for congestion, ear pain, rhinorrhea and sore throat. Eyes: Negative for pain, discharge and visual disturbance. Respiratory: Negative for cough, shortness of breath and wheezing. Cardiovascular: Negative for chest pain, palpitations and leg swelling. Gastrointestinal: Negative for abdominal pain, constipation, diarrhea, nausea and vomiting. Genitourinary: Negative for difficulty urinating, dysuria and frequency. Musculoskeletal: Positive for back pain, gait problem, neck pain and neck stiffness. Negative for arthralgias. Skin: Negative for rash. Neurological: Positive for headaches. Negative for dizziness and numbness. Psychiatric/Behavioral: Negative for sleep disturbance. The patient is not nervous/anxious. Objective Physical Exam Constitutional: General: She is not in acute distress. Appearance: Normal appearance. She is well-developed. HENT: Head: Normocephalic and atraumatic. Right Ear: Tympanic membrane and ear canal normal. Left Ear: Tympanic membrane and ear canal normal. Nose: Nose normal. Mouth/Throat: Mouth: Mucous membranes are moist. Pharynx: No posterior oropharyngeal erythema. Eyes: General: No scleral icterus. Extraocular Movements: Extraocular movements intact. Conjunctiva/sclera: Conjunctivae normal. Pupils: Pupils are equal, round, and reactive to light. Cardiovascular: Rate and Rhythm: Normal rate and regular rhythm. Heart sounds: Normal heart sounds. No murmur heard. Pulmonary: Effort: Pulmonary effort is normal. No respiratory distress. Breath sounds: Normal breath sounds. No wheezing, rhonchi or rales. Abdominal: General: Bowel sounds are normal. There is no distension. Palpations: Abdomen is soft. Tenderness: There is no abdominal tenderness. There is no guarding. Musculoskeletal: General: No swelling or deformity. Normal range of motion. Cervical back: Normal range of motion and neck supple. No tenderness. Thoracic back: Scoliosis present. Lumbar back: Negative right straight leg raise test and negative left straight leg raise test. Scoliosis present. Skin: General: Skin is warm and dry. Capillary Refill: Capillary refill takes less than 2 seconds. Findings: No rash. Neurological: General: No focal deficit present. Mental Status: She is alert and oriented to person, place, and time. Cranial Nerves: No cranial nerve deficit. Sensory: No sensory deficit. Motor: No weakness. Gait: Gait normal. Deep Tendon Reflexes: Reflexes normal. Psychiatric: Mood and Affect: Mood normal. Behavior: Behavior normal. Thought Content: Thought content normal. Judgment: Judgment normal. Assessment & Plan 1. Medicare annual wellness visit, subsequent (Primary) Reviewed all relevant preventative screenings with the patient in detail. Medicare Wellness form completed and will be scanned into patient's chart. All needed testing was ordered. Will continue with yearly Medicare Wellness exams. 2. ACP (advance care planning) Patient willing to discuss ACP. Pt has Living Will and DPOA in place. 3. Diverticulosis This is a chronic medical condition that is stable since last assessment. Denies current symptoms at this time. Will monitor. 4. Age-related osteoporosis without current pathological fracture Patient refused an updated DEXA at this time. Continue Vitamin D supplement daily. Stay active. 5. Presence of left artificial knee joint Stable at this time. Can follow up with Ortho as needed. 6. Chronic right hip pain This is a chronic medical condition that is stable since last assessment. No changes in treatment are suggested at this time. Takes Excedrin as needed. 7. Leg length discrepancy Stable at this time. Can follow up with Ortho as needed. 8. Primary osteoarthritis of left knee Stable at this time. Can follow up with Ortho as needed. 9. Primary osteoarthritis of right hip This is a chronic medical condition that is stable since last assessment. No changes in treatment are suggested at this time. Takes Excedrin as needed. 10. Other idiopathic scoliosis, lumbar region Can start Tizanidine as prescribed, as needed. Cautioned it may cause drowsiness. She has been on a muscle relaxer in the past with good improvement in symptoms. - tiZANidine (Zanaflex) 4 MG tablet; Take 1 tablet (4 mg) by mouth every 12 (twelve) hours if needed for muscle spasms for up to 15 days Dispense: 30 tablet; Refill: 0 11. Abnormal mammogram Mammogram from 10/14/2023 was negative. Will continue routine screenings. 12. Chronic idiopathic urticaria The patient is seeing a medical records auditor for this condition, treatment is deferred to that specialist. Correspondence from that specialist and any available testing were reviewed during today's visit. - predniSONE (Deltasone) 50 MG tablet; Take 1 tablet (50 mg) by mouth Daily as needed (Urticaria) for up to 10 days PRN 13. Decreased estrogen level This is a chronic medical condition that is stable since last assessment. No specific treatment at this time. 14. Difficulty walking This is a chronic medical condition that is stable since last assessment. Related to her Scoliosis. 15. Hypercalcemia This is a chronic medical condition that is stable since last assessment. No changes in treatment are suggested at this time. Continue Vitamin D. Will continue to monitor with routine labs. 16. Hypertriglyceridemia This is a chronic medical condition that is stable since last assessment. Will continue to monitor with routine labs. 17. Positive colorectal cancer screening using Cologuard test Reminded pt of positive Cologuard testing in 2022. She states she was previously referred for Colonoscopy, but that doctor apparently wasn't practicing any more, then couldn't get a hold of their office to get something else set up, so just decided not to have the testing done. Declines Colonoscopy today again. Risks of not having a Colonoscopy were reviewed with patient, including the potential for undiagnosed medical conditions or illnesses that may negatively impact the patient's health, including potentially life-threatening conditions. Patient voiced understanding regarding the risks with not having preventative screenings completed. Encouraged the patient to contact the office if at any time the patient would like to proceed with any of the preventative services. 18. Encounter for screening mammogram for malignant neoplasm of breast Pt did agree to Screening Mammogram. Provided patient with an order for an updated Mammogram. If results are negative/normal, will plan to continue with routine yearly screenings. - Bilateral screening mammogram with tomosynthesis; Future Follow up in about 1 year (around 02/09/2026) for Medicare Wellness Visit. Adriana ROACH, MARIC documented in this encounter [facility] 09-15-2024 History of Present illness Narrative Pt denies any issues with Xolair shots. Pt received (2) 150mg Xolair [facility]. Do not bill for drug. [facility]: [id number] Lot: [id number] exp 08/15. Ivana Viera returns to the office today and notes that her hives have been doing well with xolair every 4 weeks. She has mild breakthrough symptoms toward the end of the cycle. Urticaria control test today is 9. She is not taking any antihistamines as she does not feel that help at all. She has used 4 prednisone tabs in the past month. Pred works within about 2 hours. EXAM The patient appears comfortable in the office today. Lungs are clear to auscultation bilaterally. The oral mucosa is pink and healthy without any lesions or ulcers. The palate elevates in the midline. The nasal mucosa is pink and healthy. There is no epistaxis mucopus or nasal polyposis noted. The nasal septum is approximately in the midline. The skin is clear of any lesions, excoriations, or erythema. IMPRESSION: Chronic idiopathic urticaria - As she is having persistent symptoms in spite of use of Xolair every 4 weeks but she still gets significant benefit from Xolair we agreed to petition her insurance company to try and change this to a 2 week interval. Follow-up was arranged in 3-4 months for reassessment or sooner should problems arise. documented in this encounter [facility] 08-10-2024 Telephone encounter Note Ivana says she still has [employer] insurance but her plan information may have changed. I told her to bring her new card so the receptionists can enter it in and we will let Aniya know so she can resubmit the prior auth. She denies further questions at this time. [facility] Work Phone: 08-10-2024 Miscellaneous Notes Ivaan says she still has [employer] insurance but her plan information may have changed. I told her to bring her new card so the receptionists can enter it in and we will let Aniya know so she can resubmit the prior auth. She denies further questions at this time. documented in this encounter [facility] 08-29-2023 History of Present illness Narrative Time In: 3:30 pm Time [...] of 2022 summer season at working at [employer]. 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 Work Phone: [facility] note* Diagnosis Onset Date Resolution Status Primary osteoarthritis of right hip acute Scoliosis of thoracolumbar spine [facility] Work Phone: Evaluation note* Diagnosis Chronic idiopathic urticaria- Primary Idiopathic urticaria documented in this encounter [facility] Healthcare[facility] note* Diagnosis Idiopathic urticaria- Primary documented in this encounter [facility] Healthcare[facility] note* Diagnosis Chronic idiopathic urticaria- Primary Idiopathic urticaria documented in this encounter [facility] note* Diagnosis Chronic idiopathic urticaria- Primary Idiopathic urticaria documented in this encounter [facility] Healthcare[facility] note* Diagnosis Chronic idiopathic urticaria- Primary Idiopathic urticaria documented in this encounter [facility] Healthcare[facility] note* Diagnosis Chronic idiopathic urticaria- Primary Idiopathic urticaria documented in this encounter [facility] HealthcareEvaluation note* Diagnosis Medicare annual wellness visit, subsequent- Primary ACP (advance care planning) Other specified counseling Diverticulosis Diverticulosis of colon (without mention of hemorrhage) Age-related osteoporosis without current pathological fracture Presence of left artificial knee joint Chronic right hip pain Leg length discrepancy Unequal leg length (acquired) Primary osteoarthritis of left knee Primary osteoarthritis of right hip Other idiopathic scoliosis, lumbar region Abnormal mammogram Abnormal mammogram, unspecified Chronic idiopathic urticaria Idiopathic urticaria Decreased estrogen level Difficulty walking Difficulty in walking Hypercalcemia Hypertriglyceridemia Pure hyperglyceridemia Positive colorectal cancer screening using Cologuard test Encounter for screening mammogram for malignant neoplasm of breast documented in this encounter [facility] Healthcare Summary Purpose Family History No Family History Records FoundNo Family History Records FoundNo Family History Records FoundNo Family History Records Found Advance Directives No Advanced Directives Records Found Advance Directive Response Recorded Date/ Time Advance Directives No February 25 2:24pm Chief Complaint and Reason for Visit Chief Complaint CONSULT DR. GIULIA Parker HIP PAIN, NX M25.551 - Pain in right hip Chief Complaint CONSULT DR. GIULIA Parker HIP PAIN, NX M25.551 - Pain in right hip Reason for Visit Primary osteoarthrit is of right hip Scoliosis of thoracolumbar spine Additional Source Comments INFORMATION SOURCE (unrecogn ized section and content) DATE CREATED AUTHOR 09/07/2022 [facility] DATE CREATED AUTHOR AUTHOR'S ORGANIZ ATION 03/20/2024 [facility] DATE CREATED AUTHOR AUTHOR'S ORGANIZ ATION 02/10/2025 [facility] EPIC DATE CREATED AUTHOR AUTHOR'S ORGANIZ ATION 02/13/2025 [facility] Care Teams (unrecognized sec tion and content) Ore Sampler Relationship Specialty Start Date End Date Awais Chawla MD [address] [place] [address] PCP - [facility] 07/21/22 Awais Chawla MD [address] [place] [address] PCP - General Internal Medicine 12/23/22 Ore Sampler Relationship Specialty Start Date End Date Awais Chawla MD [address] [place] [address] PCP - [facility] 07/21/22 Awais Chawla MD [address] [place] [address] PCP - General Internal Medicine 12/23/22 Ore Sampler Relationship Specialty Start Date End Date Awais Chawla MD [address] [place] [address] PCP - [facility] 07/21/22 Awais Chawla MD [address] [place] [address] PCP - General Internal Medicine 12/23/22 Ore Sampler Relationship Specialty Start Date End Date Awais Chawla MD [address] [place] [address] PCP - [facility] 07/21/22 Awais Chawla MD [address] [place] [address] PCP - General Internal Medicine 12/23/22 Team Status: Active Member Role Status Dates Awais Chawla II MD Primary Care Provider Active Team Status: Inactive Member Role Status Dates Anshu Mejía II, MD Attending Provider Active Start: March 17, 2024 End: March 17, 2024 Awais Chawla II MD Primary Care Provider Active Start: March 17, 2024 End: March 17, 2024 Team Status: Active Member Role Status Dates Awais Chawla II MD Primary Care Provider Active Start: March 17, 2024 Anshu Mejía II, MD Attending Provider Active Start: March 17, 2024 Team Status: Inactive Member Role Status Dates Awais Chawla II MD Primary Care Provider Active Start: March 17, 2024 End: March 17, 2024 Anshu Mejía II, MD Attending Provider Active Start: March 17, 2024 End: March 17, 2024 Ore Sampler Relationship Specialty Start Date End Date Awais Chawla MD [address] [place] [address] PCP - [facility] 07/21/22 Awais Chawla MD [address] [place] [address] PCP - General Internal Medicine 12/23/22 Ore Sampler Relationship Specialty Start Date End Date Awais Chawla MD [address] [place] [address] PCP - [facility] 07/21/22 Awais Chawla MD [address] [place] [address] PCP - General Internal Medicine 12/23/22 Ore Sampler Relationship Specialty Start Date End Date wAais Chawla MD [address] [place] [address] PCP - [facility] 07/21/22 07/20/24 Awais Chawla MD [address] [place] [address] PCP - General Internal Medicine 12/23/22 Ore Sampler Relationship Specialty Start Date End Date Awais Chawla MD [address] [place] [address] PCP - [facility] 07/21/22 Awais Chawla MD [address] [place] [address] PCP - General Internal Medicine 12/23/22 Ore Sampler Relationship Specialty Start Date End Date Awais Chawla MD [address] [place] [address] PCP - [facility] 07/21/22 Awais Chawla MD [address] [place] [address] PCP - General Internal Medicine 12/23/22 Ore Sampler Relationship Specialty Start Date End Date Awais Chawla MD [address] [place] [address] PCP - [facility] 07/21/22 Awais Chawla MD [address] [place] [address] PCP - General Internal Medicine 12/23/22 Ore Sampler Relationship Specialty Start Date End Date Awais Chawla MD [address] [place] [address] PCP - [facility] 07/21/22 Awais Chawla MD [address] [place] [address] PCP - General Internal Medicine 12/23/22 Ore Sampler Relationship Specialty Start Date End Date Awais Chawla MD [address] [place] [address] PCP - [facility] 07/21/22 Awais Chawla MD [address] [place] [address] PCP - General Internal Medicine 12/23/22 Ore Sampler Relationship Specialty Start Date End Date Awais Chawla MD [address] [place] [address] PCP - [facility] 07/21/22 Awais Chawla MD [address] [place] [address] PCP - General Internal Medicine 12/23/22 Reason for Visit (unrecogniz ed section and content) Specialty Diagnoses / Procedures Referred By Contac t Referred To Contact Physical Therapy Diagnoses Other idiopathic scoliosis, lumbar region Right Obliques and Quad Lumbo Procedures [place] PHYSICAL THERAPY EVALUATION LOW COMPLEX 20 MINS Jodee Kumar MD [address] [place] [address], [address], [place] [address] Tuyet Jimenes, PT [address] [place] [address] Referral ID Status Reason Start Date Expiration Date V isits Requested Visits Authorized [id number] Authorized 08/25/2023 02/21/2024 99 99 Reason Onset Date Comments re: PT 09/03/2023 She noted that w / the 2 PT's so far she is feeling no progress or improvement; I advised a cont w/ be beneficial. But she chooses to discontinue; I recommended and she said she is going to contact doctor. I noted not to hesitate if PT is needed. Reason Comments Follow-up No surgeries; no hos pital stays. Pt states she needs prednisone 2-3 days after her xolair injection. Reason Onset Date Comments Med Refill 10/27/2024 Reason Onset Date Comments Med Refill 12/23/2024 Reason Comments Medicare Annual Wellness Visit Subsequen t Goals (unrecognized section and content) Goals may be documented in a n alternate sectionGoals may be documented in an alternate section FOR RECORDS PERTAINING TO PATIENTS WHO ARE [...] BE BASED ON THE PRIMARY CLINICAL RECORDS. [employer] provides no warranty or guarantee of the accuracy or completeness of information in this document.
== END 2025-02-14 08:50 | disposition home or self-care (01) ==
LOC: MAMMO 08:49
PROVIDERS: PCP Internal Medicine; Visit Provider Physician Assistant
DX: Z12.31 Encounter for screening mammogram for malignant neoplasm of breast (principal)
CPT/HCPCS: 77063; 77067